=== PATIENT | male | born 1935 | race Caucasian/White ===

== ENCOUNTER → 2016-08-09 | Outpatient (CLI) | payer MEDICARE, OTHER | LOC: RAD 08:31 | PROVIDERS: ATTEND Student in an Organized Health Care Education/Training Program | DX: R13.10 Dysphagia, unspecified (principal) | CPT/HCPCS: 74210 ==

== ENCOUNTER → 2019-07-06 | Outpatient (CLI) | payer MEDICARE, OTHER ==
--- NOTE | 2019-07-06 16:08 | RADIOLOGY REPORT (SQ) ---
EXAM DESCRIPTION: BARIUM SWALLOW ESOPHAGUS COMPLETED DATE/TIME: 07/06/2019 9:21 am REASON FOR STUDY: R13.10 DYSPHAGIA, UNSPECIFIED R13.10 DYSPHAGIA, UNSPECIFIED COMPARISON: Barium swallow 08/09/2016 TECHNIQUE: Under fluoroscopic guidance, patient ingested effervescent granules followed by thick and thin barium. Fluoroscopic spot images and routine radiographic images acquired and stored on PACS. 12 MM BARIUM TABLET GIVEN: Barium tablet lodged in the distal esophagus just above a small hiatal her sherine for approximately 15 minutes before passing into the stomach. LIMITATIONS: None. FLUOROSCOPY TIME: FLUORO TIME: 2.39 minutes 11 images saved to PACS. FINDINGS: NEUROMUSCULAR COORDINATION OF SWALLOW: Normal. Laryngeal penetration without aspiration s een. ESOPHAGEAL MOTILITY: Normal peristalsis. No esophageal spasm. ESOPHAGEAL MUCOSA: Normal mucosa without masses or ulceration. GASTRO-ESOPHAGEAL JUNCTION: Narrowing of the GE junction which impeded the passage of the 12 mm table t for approximately 15 minutes. There is a small hiatal hernia present which is related to possible surgical changes consistent with Ramon fundoplication. Correlation with patient surgical history re commended. NON-GI TRACT STRUCTURES: No significant finding. OTHER: No other significant finding. IMPRESSION: NARROWING AT THE DISTAL ESOPHAGUS WHICH IMPEDES THE PASSAGE OF 12 MM BARIUM TABLET. SMA LL HIATAL HERNIA RELATED TO POSSIBLE SURGICAL CHANGES CONSISTENT WITH RAMON. CORRELATION WITH PATIE NT'S GI SURGICAL HISTORY IS RECOMMENDED. RECOMMENDATION: None COMMENT: None Quality ID [id number]: Final reports for procedures using fluoroscopy that document radiation exposure zak moe, or exposure time and number of fluorographic images (if radiation exposure indices are not avail able) TECHNICAL DOCUMENTATION: JOB ID: [id number] [employer]- All Rights Reserved Reading location - IP/workstation name: [email or web address] [id number]
== END ==
LOC: RAD 08:29
PROVIDERS: ATTEND Internal Medicine Gastroenterology
DX: R13.10 Dysphagia, unspecified (principal)
CPT/HCPCS: 74220

== ENCOUNTER 2019-11-13 09:46 | Inpatient (IN) | payer MEDICARE, OTHER ==
--- NOTE | 2019-11-13 09:57 | ER Document Report ---
ED Medical Screen (RME) - General Chief Complaint: Swelling Stated Complaint: BODY SWELLING/WEIGHT GAIN Time Seen by Provider: 11/13/19 09:50 Primary Care Provider: LAUREN FERRER MD [Primary Care Provider] - Follow up as needed Mode of Arrival: Wheelchair Information source: Patient Notes: Patient presents complaining of lower extremity swelling for the past week with occasional shortness of breath. Patient denies any chest pain. Patient does acknowledge a history of hypertension COPD and CHF. I have greeted and performed a rapid initial assessment of this patient. A comprehensive ED assessment and evaluation of the patient, analysis of test results and completion of the medical decision making process will be conducted by additional ED providers. TRAVEL OUTSIDE OF THE [place] IN LAST 30 DAYS: No - Related Data Allergies/Adverse Reactions: Sulfa (Sulfonamide Antibiotics) Allergy (Intermediate, Verified 11/24/11 08:41) Past Medical History - Past Medical History Cardiac Medical History: Reports: Hx Coronary Artery Disease, Hx Hypertension - high cholesterol Comment Only: Hx Heart Attack - unsure Pulmonary Medical History: Denies: Hx Asthma, Hx Bronchitis, Hx COPD, Hx Pneumonia Neurological Medical History: Denies: Hx Cerebrovascular Accident, Hx Seizures Musculoskeltal Medical History: Reports Hx Arthritis Past Surgical History: Denies: Hx Pacemaker - Immunizations Hx Diphtheria, Pertussis, Tetanus Vaccination: Yes Physical Exam - General General appearance: Alert Notes: Respirations unlabored, 2-3+ edema to bilateral lower extremities, heart rate irregularly irregular Doctor's Discharge - Discharge Referrals: LAUREN FERRER MD [Primary Care Provider] - Follow up as needed
[2019-11-13 10:21] LABS: ABSOLUTE EOSINOPHILS # (AUTO) 0.2 10^3/uL (0.0-0.6); ABSOLUTE LYMPHOCYTES (AUTO) 0.3 10^3/uL (0.5-4.7); ABSOLUTE MONOCYTES (AUTO) 0.5 10^3/uL (0.1-1.4); ABSOLUTE NEUT (AUTO) 3.7 10^3/uL (1.7-8.2); BASOPHILS % (AUTO) 0.6 % (0-2); EOSINOPHILS % (AUTO) 3.5 % (0-6); HEMATOCRIT 38.1 % (37.9-51.0); HEMOGLOBIN 12.7 g/dL (13.5-17.0); LYMPHOCYTES % (AUTO) 7.3 % (13-45); MEAN CORPUSCULAR HEMOGLOBIN 31.9 pg (27.0-33.4); MEAN CORPUSCULAR HGB CONC 33.4 g/dL (32.0-36.0); MEAN CORPUSCULAR VOLUME 96 fl (80-97); MONOCYTES % (AUTO) 10.5 % (3-13); PLATELET COUNT 116 10^3/uL (150-450); RED BLOOD COUNT 3.99 10^6/uL (4.35-5.55); RED CELL DISTRIBUTION WIDTH 15.6 % (11.5-14.0); SEGMENTED NEUTROPHILS % (AUTO) 78.1 % (42-78); TOTAL CELLS COUNTED % (AUTO) 100 %; WHITE BLOOD COUNT 4.7 10^3/uL (4.0-10.5)
[2019-11-13 10:46] LABS: ALBUMIN 3.7 g/dL (3.5-5.0); ALKALINE PHOSPHATASE 114 U/L (38-126); ANION GAP 11 (5-19); ASPARTATE AMINO TRANSFERASE 30 U/L (17-59); BILIRUBIN,DIRECT 0.4 mg/dL (0.0-0.4); BILIRUBIN,TOTAL 1.8 mg/dL (0.2-1.3); BLOOD UREA NITROGEN 21 mg/dL (7-20); CARBON DIOXIDE 26 mmol/L (22-30); CHLORIDE 102 mmol/L (98-107); GLUCOSE 176 mg/dL (75-110); POTASSIUM 3.3 mmol/L (3.6-5.0); TOTAL PROTEIN 6.8 g/dL (6.3-8.2)
--- NOTE | 2019-11-13 10:49 | RADIOLOGY REPORT (SQ) ---
EXAM DESCRIPTION: CHEST 2 VIEWS IMAGES COMPLETED DATE/TIME: 11/13/2019 10:38 am REASON FOR STUDY: sob, extremity swelling COMPARISON: None. EXAM PARAMETERS: NUMBER OF VIEWS: two views TECHNIQUE: Digital Frontal and Lateral radiographic views of the chest acquired. RADIATION DOSE: NA LIMITATIONS: none FINDINGS: LUNGS AND PLEURA: Bilateral interstitial airspace disease. Small effusions and or pleural thickening. Pleural thickening bilaterally left greater than right. MEDIASTINUM AND HILAR STRUCTURES: No masses or contour abnormalities. HEART AND VASCULAR STRUCTURES: Heart is enlarged. No overt failure. BONES: No acute findings. HARDWARE: Sternotomy wires are in place. OTHER: No other significant finding. IMPRESSION: Suspect chronic bilateral interstitial airspace disease. Blunting of both costophrenic angles consistent with small effusions and or pleural thickening. TECHNICAL DOCUMENTATION: JOB ID: [id number] [employer]- All Rights Reserved Reading location - IP/workstation name: [email or web address]
[2019-11-13 10:59] LABS: TROPONIN I 0.032 ng/mL
[2019-11-13 11:07] LABS: PROTHROMBIN TIME 18.3 SEC (11.4-15.4)
[2019-11-13 11:08] LABS: PARTIAL THROMBOPLASTIN TIME 38.1 SEC (23.5-35.8)
[2019-11-13] MEDS ORDERED: FUROSEMIDE INJ/PF 40 MG/4 ML SDV IV ONE (11:46)
[2019-11-13] MEDS ORDERED: NITROGLYCERIN 2% OINTMENT 1 GM PACKET TP ONE (11:47)
[2019-11-13] MEDS ORDERED: POTASSI CL 20 MEQ/50 ML RIDER 20 MEQ/50 ML RTUPB IV ONE (11:48)
[2019-11-13] MEDS ORDERED: POTASSIUM CHLORIDE 10 MEQ TABLET.ER PO ONE (11:49)
--- NOTE | 2019-11-13 12:48 | ER Document Report ---
Entered by ARNALDO ZAIDI SCRIBE 11/13/19 1022 Acting as scribe for:RAYNA COLLADO MD ED General - General Chief Complaint: Leg Swelling Stated Complaint: BODY SWELLING/WEIGHT GAIN Time Seen by Provider: 11/13/19 09:50 Primary Care Provider: LAUREN FERRER MD [Primary Care Provider] - Follow up as needed Mode of Arrival: Wheelchair Information source: Patient Notes: This 84-year-old male presents to the emergency department complaining of bilateral leg swelling that began a week ago. Patient explains that he noticed being increasing short of breath throughout the week. Patient reported that he did not sleep well last night and "lost 2-3 pounds last night". Patient reports that his last bowel movement was this morning and it was loose. Patient states that he is not on oxygen at home and saw his deputy chief sheriff yesterday. Patient denies chills, nausea, vomiting, fever, chest pain and cough. later was called by request of patient. states that patient has been in bed for the past two days. said that patient is unable to stand to urinate on his own and has a rash on his testicles. said she tried to spray something on to help the rash but patient complained it burned. PMH: Stage 4 kidney failure, history of quadruple coronary artery bypass surgery, several coronary stents (last being 2 years ago in [place]), COPD, CHF (last CHF episode 4-5 years ago). TRAVEL OUTSIDE OF THE [place] IN LAST 30 DAYS: No - Related Data Allergies/Adverse Reactions: Sulfa (Sulfonamide Antibiotics) Allergy (Intermediate, Verified 11/13/19 09:59) Home Medications: advair, proair, combivent, spiriva, timolol, keflex, delzicol, vit c, aspirin, finasteride, metoprolol, atorvastatin, furosemide, latanoprost Past Medical History - General Information source: Patient - Social History Smoking Status: Former Smoker Cigarette use (# per day): No Chew tobacco use (# tins/day): No Frequency of alcohol use: None Drug Abuse: None Lives with: Spouse/Significant other Family History: Reviewed & Not Pertinent Patient has homicidal ideation: No - Past Medical History Cardiac Medical History: Reports: Hx Coronary Artery Disease, Hx Hypertension - high cholesterol Musculoskeletal Medical History: Reports Hx Arthritis Surgical Hx: Negative - Immunizations Hx Diphtheria, Pertussis, Tetanus Vaccination: Yes Review of Systems - Review of Systems Constitutional: See HPI, Weight loss. denies: Chills, Fever EENT: No symptoms reported Cardiovascular: See HPI. denies: Chest pain Respiratory: See HPI, Short of breath Gastrointestinal: See HPI, Last bowel movement. denies: Nausea, Vomiting Genitourinary: No symptoms reported Male Genitourinary: No symptoms reported Musculoskeletal: See HPI, Leg swelling - bilateral Skin: No symptoms reported Hematologic/Lymphatic: No symptoms reported Neurological/Psychological: No symptoms reported -: Yes All other systems reviewed and negative Physical Exam - Vital signs Vitals: Temp Pulse Resp BP Pulse Ox 97.6 F 64 22 H 136/64 H 100 11/13/19 09:55 11/13/19 09:55 11/13/19 09:55 11/13/19 09:55 11/13/19 09:55 - Notes Notes: Physical Exam: General: Alert. HEENT: Normocephalic. Atraumatic. PERRL. Extraocular movements intact. Oropharynx clear. Neck: Supple. Non-tender. Respiratory: Moderate respiratory distress. Diminished breath in the bases bilaterally. Cardiovascular: Irregularly irregular. Abdominal: Obese. Non-tender. No distension. Normal Bowel Sounds. Rectal: Stool brown color and guaiac negative. Back: No gross abnormalities. Extremities: Moves all four extremities. Upper extremities: Normal inspection. Normal ROM. Lower extremities: 2+ edema. Normal ROM. Neurological: Normal cognition. AAOx4. Normal speech. Psychological: Normal affect. Normal Mood. Skin: Warm. Dry. Normal color. Course - Re-evaluation Re-evalutation: 11/13/19 12:38 Patient remains shortness of breath with minimal exertion. If patient stands up to get out of the bed he desats down to 89%. Once at rest his sats return to up to 98%. Denies any chest pain. 11/13/19 12:[address] Ortiz, deputy chief sheriff who will do a bedside consult with patient. 11/13/19 12:[address] Moct[place], hospitalist who will admit patient to hospital. - Vital Signs Vital signs: Temp Pulse Resp BP Pulse Ox 97.6 F 64 14 132/71 H 97 11/13/19 09:55 11/13/19 09:55 11/13/19 10:12 11/13/19 10:12 11/13/19 10:12 11/13/19 12:39 Vital signs stable. - Laboratory Result Diagrams: 11/13/19 10:11 11/13/19 10:11 Laboratory results interpreted by me: 11/13/19 11/13/19 11/13/19 10:11 10:11 10:11 RBC 3.99 L Hgb 12.7 L RDW 15.6 H Plt Count 116 L Lymph % (Auto) 7.3 L Absolute Lymphs (auto) 0.3 L Seg Neutrophils % 78.1 H PT APTT Potassium 3.3 L BUN 21 H Creatinine 1.70 H Est GFR ( Amer) 47 L Est GFR (MDRD) Non-Af 39 L Glucose 176 H Total Bilirubin 1.8 H NT-Pro-B Natriuret Pep 8320 H 11/13/19 10:11 RBC Hgb RDW Plt Count Lymph % (Auto) Absolute Lymphs (auto) Seg Neutrophils % PT 18.3 H APTT 38.1 H Potassium BUN Creatinine Est GFR ( Amer) Est GFR (MDRD) Non-Af Glucose Total Bilirubin NT-Pro-B Natriuret Pep Laboratories show chronic renal failure, CHF, and elevated troponin. Patient has COPD chronic A. fib with CHF chronic renal failure. Patient also has hypokalemia at this time. 11/13/19 12:39 - Diagnostic Test Radiology reviewed: Image reviewed, Reports reviewed Radiology results interpreted by me: 11/13/19 12:40 Chest x-ray shows cardiomegaly and opacification and noted in both lung bases consistent with either fluid chronic scarring or pneumonitis. - EKG Interpretation by Me Additional EKG results interpreted by me: 11/13/19 12:41 Twelve-lead EKG shows atrial fibrillation with a rate of 60 ventricular TRigeminy, and a right bundle branch block. Critical Care Note - Critical Care Note Total time excluding time spent on procedures (mins): 40 - MONITORING a FIB, CHF, HYPOXIA, AND ELEVATED TROPONIN. TRETMENT OF PRESENT PROBLEMS STATED. CONSULT S WITH CARDIOILOGIST, AND IFNFORMATION GATHERING FROM FAMILY. Discharge - Discharge Clinical Impression: Congestive heart failure, Chronic kidney disease (CKD), stage IV (severe), Elevated troponin, Hypokalemia Condition: Fair Disposition: ADMITTED INPATIENT Admitting Provider: Padma (Hospitalist) Unit Admitted: IMCU Referrals: LAUREN FERRER MD [Primary Care Provider] - Follow up as needed I personally performed the services described in the documentation, reviewed and edited the documentation which was dictated to the scribe in my presence, and it accurately records my words and actions.
[2019-11-13] MEDS ORDERED: ASPIRIN 81 MG TABLET, CHEWABLE PO ONE (13:20)
--- NOTE | 2019-11-13 13:41 | PDOC CONSULTATION ---
Consultation Consult Date: 11/13/19 Attending physician:: GRISELDA MAS Provider Consulted: DOMINGO YOUNG Consult reason:: CHF History of Present Illness Admission Date/PCP: 11/13/19 12:52 LAUREN FERRER MD History of Present Illness: SANDEE FERNANDES is a 84 year old male, retired [employer] with history of coronary artery disease status post 4 vessel CABG in 2001 and stent in 2012 and left main stenting in December 2016 with a 3.5 mm x 12 mm Xience VIC as well as stenting of the left circumflex with a 3.5 mm x 23 mm Xience VIC, hypertension, heart failure, pulmonary hypertension, hyperlipidemia who is consulted to our service for evaluation and further treatment of heart failure. His echocardiogram in July 2018 was most remarkable for severe pulmonary hypertension, preserved ejection fraction and stable aortic root aneurysm at 3.9 cm. I last evaluated him in my office on 09/20/2019 at which time he was found to be mildly fluid overloaded therefore his Lasix was increased but unfortunately he was not able to follow-up as scheduled 2 weeks later. His states that he had been doing well until approximately 1 to 2 weeks ago when he began to notice lower extremity edema associated with shortness of breath which progressed to the point he just spent the last 2 or 3 days in bed and unable to walk without assistance. He is evaluated in the emergency room where he is in no acute distress in his bed. He specifically denies chest pain, palpitations, syncope, presyncope as well as shortness of breath. Physical exam on 11/13/2019: GENERAL: Oriented x3 with normal mood. Not in acute distress. Well groomed and well developed. HEENT: Normocephalic, atraumatic. Pupils equal. Sclerae anicteric. Oropharynx moist. NECK: No JVD. No carotid bruits. LUNGS: Decreased breath sounds bilaterally. Normal respiratory effort without the use of accessory muscles or intercostal retractions. CARDIOVASCULAR: Irregularly irregular rate and rhythm, normal S1 and S2 without rubs, or gallops. 2/6 crescendo decrescendo murmur at the right upper sternal border. PMI not displaced. EXTREMITIES: 2-3 + pitting edema bilaterally, no cyanosis up to the thighs, no clubbing. +2 pulses femoral and pedal pulses bilaterally. SKIN: No lesions or rashes. MUSCULOSKELETAL: No chest tenderness to palpation. NEUROLOGIC: Nonfocal. No gross sensory or motor deficits bilateral upper or lower extremities. [id number] Cardiac studies: Echocardiogram on 09/25/2019: -LV is normal in size. -Mild concentric LVH. -Normal ejection fraction. -Diastolic dysfunction is indeterminate in the presence of atrial fibrillation. -Flattened septum consistent with RV pressure/volume overload. -Moderate RVE with mildly reduced systolic function. -Moderate biatrial enlargement. -Mild MAC without stenosis. -Mild to moderate MR, severe TR, mild AI, mild to moderate PI. -Severely elevated pulmonary pressures and estimated between 75 and 80 mmHg. -Borderline dilated aortic root at 3.7 cm. Echocardiogram on 08/02/18: -LV is normal in size. -Mild concentric LVH. -Ejection fraction is normal. -RV pressure/volume overload is present. -Mild to moderate RVE with moderately decreased systolic function. -Severe biatrial enlargement. -Mild MAC without stenosis -Mild to moderate MR, moderate to severe TR, mild AI, mild PI. -Severe pulmonary hypertension. -Mildly dilated aortic root at 3.9 cm. Echocardiogram on 07/29/17: -The patient was in slow atrial fibrillation. -The left ventricle is normal in size. -Mild LVH. -Grossly normal EF. -Flattened septum consistent with RV pressure overload. -Moderate to severe RVE with borderline reduced systolic function. -Severe LAE, moderate JEAN. -Mild MAC without stenosis. -Moderate MR, severe TR, mild to moderate AI, mild PI. -Mildly sclerotic aortic valve without stenosis. -Severe pulmonary hypertension with pressures estimated at 82 mmHg. -Mild aortic root dilatation at 4.1 cm. -Mildly dilated proximal ascending aorta at 2.8 cm. [facility] on 12/14 17: -Left main: No disease. -LAD: Heavily calcified. Proximally occluded, fills distally via SVG. -Diagonal: fills distally via OGDEN graft. -Left circumflex: Dominant vessel. 70% proximal stenosis. Totally occluded distally. -OM1: Proximally occluded. fills via SVG. -PDA: fills via SVG. -SVG to the PDA: Patent. -SVG to 2 diagonals: Patent. -SVG to OM1: Patent. -OGDEN: Patent. Past Medical History Cardiac Medical History: Reports: Coronary Artery Disease, Hypertension - high cholesterol Comment Only: Myocardial Infarction - unsure Pulmonary Medical History: Denies: Asthma, Bronchitis, Chronic Obstructive Pulmonary Disease (COPD), Pneumonia Neurological Medical History: Denies: Seizures Musculoskeltal Medical History: Reports: Arthritis Hematology: Denies: Anemia Past Surgical History Past Surgical History: Denies: Pacemaker Social History Lives with: Spouse/Significant other Smoking Status: Former Smoker Electronic Cigarette use?: No Family History Family History: Reviewed & Not Pertinent Parental Family History Reviewed: Yes Children Family History Reviewed: Yes Sibling(s) Family History Reviewed.: Yes Medication/Allergy Home Medications: Acetaminophen [Acetaminophen Extra Strength] 1,000 mg PO QAMP PRN 11/13/19 Albuterol Sulfate [Proair HFA Inhalation Aerosol 8.5 gm MDI] 2 puff IH Q6 11/13/19 Ascorbic Acid [Vitamin C 500 mg Tablet] 500 mg PO QAM 11/13/19 Aspirin [Adult Low Dose Aspirin EC] 81 mg PO NOON 11/13/19 Atorvastatin Calcium [Lipitor 40 mg Tablet] 40 mg PO QHS 11/13/19 Carboxymethylcellulose Sodium [Refresh Tears] 1 drop OU ASDIR PRN 11/13/19 Cephalexin [Cephalexin 500 MG Tablet] 500 mg PO Q8 11/13/19 Finasteride [Proscar 5 mg Tablet] 5 mg PO NOON 11/13/19 Fluticasone Propion/Salmeterol [Advair HFA 115-21 mcg Inhaler] 2 puff IH BID 11/13/19 Furosemide [Lasix 40 mg Tablet] 40 mg PO BID 11/13/19 Ipratropium/Albuterol Sulfate [Combivent Respimat 4 gm Mdi] 1 puff IH QID 11/13/19 Latanoprost/Pf [Latanoprost 0.005% Eye Drop] 1 drop OU QHS 11/13/19 Mesalamine [Mesalamine Dr] 800 mg PO Q8 11/13/19 Metoprolol Succinate [Toprol Xl 25 mg Tab.sr] 25 mg PO NOON 11/13/19 Timolol Maleate [Timoptic 0.5% Oph Soln 5 ml] 1 drop OU DAILY 11/13/19 Tiotropium [place] [Spiriva Respimat] 1 puff IH ASDIR PRN 11/13/19 Allergies/Adverse Reactions: Sulfa (Sulfonamide Antibiotics) Allergy (Intermediate, Verified 11/13/19 09:59) Physical Exam Vital Signs: Temp Pulse Resp BP Pulse Ox 97.6 F 64 14 132/71 H 97 11/13/19 09:55 11/13/19 09:55 11/13/19 10:12 11/13/19 10:12 11/13/19 10:12 Intake & Output 11/12/19 11/13/19 11/14/19 06:59 06:59 06:59 Weight 101.7 kg Results Laboratory Results: 11/13/19 10:11 11/13/19 10:11 11/13/19 11/13/19 10:11 10:11 WBC 4.7 RBC 3.99 L Hgb 12.7 L Hct 38.1 MCV 96 MCH 31.9 MCHC 33.4 RDW 15.6 H Plt Count 116 L Seg Neutrophils % 78.1 H Sodium 138.7 Potassium 3.3 L Chloride 102 Carbon Dioxide 26 Anion Gap 11 BUN 21 H Creatinine 1.70 H Est GFR ( Amer) 47 L Glucose 176 H Calcium 9.0 Total Bilirubin 1.8 H AST 30 Alkaline Phosphatase 114 Total Protein 6.8 Albumin 3.7 11/13/19 10:11 Troponin I 0.032 NT-Pro-B Natriuret Pep 8320 H Impressions: Chest X-Ray 11/13/19 09:55 IMPRESSION: Suspect chronic bilateral interstitial airspace disease. Blunting of both costophrenic angles consistent with small effusions and or pleural thickening. 11/13/19 10:11 11/13/19 10:11 MCV 96 fl (80-97) 11/13/19 10:11 MCH 31.9 pg (27.0-33.4) 11/13/19 10:11 MCHC 33.4 g/dL (32.0-36.0) 11/13/19 10:11 RDW 15.6 % (11.5-14.0) H 11/13/19 10:11 Seg Neutrophils % 78.1 % (42-78) H 11/13/19 10:11 Chloride 102 mmol/L (98-107) 11/13/19 10:11 Carbon Dioxide 26 mmol/L (22-30) 11/13/19 10:11 Anion Gap 11 (5-19) 11/13/19 10:11 Est GFR ( Amer) 47 (>60) L 11/13/19 10:11 Glucose 176 mg/dL (75-110) H 11/13/19 10:11 Calcium 9.0 mg/dL (8.4-10.2) 11/13/19 10:11 Total Bilirubin 1.8 mg/dL (0.2-1.3) H 11/13/19 10:11 AST 30 U/L (17-59) 11/13/19 10:11 Alkaline Phosphatase 114 U/L (38-126) 11/13/19 10:11 Total Protein 6.8 g/dL (6.3-8.2) 11/13/19 10:11 Albumin 3.7 g/dL (3.5-5.0) 11/13/19 10:11 11/13/19 10:11 Troponin I 0.032 NT-Pro-B Natriuret Pep 8320 H Assessment & Plan - Diagnosis (1) Heart failure with preserved ejection fraction, borderline, class III Plan: The patient is currently fluid overloaded with symptoms suggestive of heart failure as well as lower extremity edema, elevated proBNP and small pleural effusions. His most recent echocardiogram in the outpatient setting in September 2019 demonstrated preserved ejection fraction with mild RV systolic dysfunction and severe pulmonary hypertension which has remained stable from a prior echocardiogram in July 2018. Recommendations: -Diuresis with Lasix 40 mg IV twice daily. -Replace electrolytes. -Restrict fluid intake to 1500 cc daily. -Low sodium diet, less than 1500 mg daily. -Strict intake and output. -Daily weights. -Cardiac telemetry. (2) Chronic kidney disease (CKD), stage IV (severe) Plan: Today's creatinine is unchanged from a prior one done in my office in September 2019. Recommendations: -Diuresis as above with close attention to creatinine. -Replace electrolytes. (3) Elevated troponin Plan: His troponin is detectable however still below the cutoff for acute injury. This is likely secondary to his heart failure exacerbation and not from an ACS. Recommendations: -Continue with clinical follow-up. -Continue with outpatient medications except Lasix. (4) Permanent atrial fibrillation Plan: His heart rate is well controlled and he is anticoagulated with low-dose Eliquis. Recommendations: -Continue with current medical management.
[2019-11-13] MEDS ORDERED: (PENDING PHARMACY ID) (Tiotropium Bromide [Spiriva Respimat] 1 PUFF) IH PRN (16:43)
[2019-11-13] MEDS ORDERED: (PENDING PHARMACY ID) (Carboxymethylcellulose Sodium [Refresh Tears] 1 DROP) OU PRN (16:43)
[2019-11-13] MEDS ORDERED: (PENDING PHARMACY ID) (Acetaminophen [Acetaminophen Extra Strength] 1,000 MG) PO PRN (16:43)
[2019-11-13] MEDS ORDERED: ACETAMINOPHEN 325 MG TABLET PO PRN (16:48)
--- NOTE | 2019-11-13 17:32 | PDOC H&P ---
History of Present Illness Admission Date/PCP: 11/13/19 12:52 LAUREN FERRER MD Patient complains of: Shortness of breath History of Present Illness: SANDEE FERNANDES is a 84 year old male who has history of coronary artery disease status post CABG and stents. He also has hypertension, congestive heart failure, pulmonary hypertension, dyslipidemia. Patient has preserved ejection fraction. He had an echocardiogram September 2019. Patient presents with dyspnea on exertion and he was hypoxic on exertion in the emergency room. His troponin level slightly elevated at 0.032 but decreased after that. He has lower extremity edema. Past Medical History Cardiac Medical History: Reports: Coronary Artery Disease, Hypertension - high cholesterol Comment Only: Myocardial Infarction - unsure Pulmonary Medical History: Denies: Asthma, Bronchitis, Chronic Obstructive Pulmonary Disease (COPD), Pneumonia Neurological Medical History: Denies: Seizures Musculoskeltal Medical History: Reports: Arthritis Psychiatric Medical History: Denies: Depression Hematology: Denies: Anemia Past Surgical History Past Surgical History: Denies: Pacemaker Social History Lives with: Spouse/Significant other Smoking Status: Former Smoker Electronic Cigarette use?: No Frequency of Alcohol Use: None Hx Recreational Drug Use: No Hx Prescription Drug Abuse: No Family History Family History: Reviewed & Not Pertinent Parental Family History Reviewed: Yes Children Family History Reviewed: Yes Sibling(s) Family History Reviewed.: Yes Medication/Allergy Home Medications: Acetaminophen [Acetaminophen Extra Strength] 1,000 mg PO QAMP PRN 11/13/19 Albuterol Sulfate [Proair HFA Inhalation Aerosol 8.5 gm MDI] 2 puff IH Q6 11/13/19 Ascorbic Acid [Vitamin C 500 mg Tablet] 500 mg PO QAM 11/13/19 Aspirin [Adult Low Dose Aspirin EC] 81 mg PO NOON 11/13/19 Atorvastatin Calcium [Lipitor 40 mg Tablet] 40 mg PO QHS 11/13/19 Carboxymethylcellulose Sodium [Refresh Tears] 1 drop OU ASDIR PRN 11/13/19 Cephalexin [Cephalexin 500 MG Tablet] 500 mg PO Q8 11/13/19 Finasteride [Proscar 5 mg Tablet] 5 mg PO NOON 11/13/19 Fluticasone Propion/Salmeterol [Advair HFA 115-21 mcg Inhaler] 2 puff IH BID 11/13/19 Furosemide [Lasix 40 mg Tablet] 40 mg PO BID 11/13/19 Ipratropium/Albuterol Sulfate [Combivent Respimat 4 gm Mdi] 1 puff IH QID 11/13/19 Latanoprost/Pf [Latanoprost 0.005% Eye Drop] 1 drop OU QHS 11/13/19 Mesalamine [Mesalamine Dr] 800 mg PO Q8 11/13/19 Metoprolol Succinate [Toprol Xl 25 mg Tab.sr] 25 mg PO NOON 11/13/19 Timolol Maleate [Timoptic 0.5% Oph Soln 5 ml] 1 drop OU DAILY 11/13/19 Tiotropium [place] [Spiriva Respimat] 1 puff IH ASDIR PRN 11/13/19 Allergies/Adverse Reactions: Sulfa (Sulfonamide Antibiotics) Allergy (Intermediate, Verified 11/13/19 09:59) Review of Systems All systems: reviewed and no additional remarkable complaints except as stated Physical Exam Vital Signs: Temp Pulse Resp BP Pulse Ox 98.0 F 80 20 107/66 93 11/13/19 13:01 11/13/19 15:25 11/13/19 15:25 11/13/19 15:25 11/13/19 14:11 Intake & Output 11/12/19 11/13/19 11/14/19 06:59 06:59 06:59 Weight 222 lb 0.088 oz General appearance: PRESENT: no acute distress, cooperative Head exam: PRESENT: atraumatic, normocephalic Eye exam: PRESENT: EOMI, PERRLA Ear exam: ABSENT: bleeding, drainage Mouth exam: PRESENT: neck supple, tongue midline Neck exam: ABSENT: meningismus, tenderness, tracheostomy Respiratory exam: PRESENT: rales. ABSENT: accessory muscle use Cardiovascular exam: PRESENT: irregular rhythm, +S1, +S2. ABSENT: RRR GI/Abdominal exam: PRESENT: normal bowel sounds, soft. ABSENT: tenderness Rectal exam: PRESENT: deferred Neurological exam: PRESENT: alert, awake, oriented to time, oriented to situation. ABSENT: oriented to place Psychiatric exam: PRESENT: anxious Results Laboratory Results: 11/13/19 10:11 11/13/19 10:11 11/13/19 11/13/19 11/13/19 10:11 10:11 10:11 WBC 4.7 RBC 3.99 L Hgb 12.7 L Hct 38.1 MCV 96 MCH 31.9 MCHC 33.4 RDW 15.6 H Plt Count 116 L Seg Neutrophils % 78.1 H Sodium 138.7 Potassium 3.3 L Chloride 102 Carbon Dioxide 26 Anion Gap 11 BUN 21 H Creatinine 1.70 H Est GFR ( Amer) 47 L Glucose 176 H Calcium 9.0 Total Bilirubin 1.8 H AST 30 Alkaline Phosphatase 114 Total Protein 6.8 Albumin 3.7 TSH 1.66 11/13/19 11/13/19 10:11 13:21 Troponin I 0.032 0.027 NT-Pro-B Natriuret Pep 8320 H Impressions: Chest X-Ray 11/13/19 09:55 IMPRESSION: Suspect chronic bilateral interstitial airspace disease. Blunting of both costophrenic angles consistent with small effusions and or pleural thickening. Assessment and Plan - Diagnosis (1) Heart failure with preserved ejection fraction, borderline, class III Is this a current diagnosis for this admission?: Yes Plan: Acute on chronic diastolic CHF Normal EF on echocardiogram September 2019 Admit this patient to telemetry. Start IV Lasix Daily weight Strict I&O (2) Chronic kidney disease (CKD), stage IV (severe) Is this a current diagnosis for this admission?: Yes Plan: Continue to monitor renal function (3) Elevated troponin Is this a current diagnosis for this admission?: Yes Plan: Flat. No chest pain. Cardiology involved. (4) Permanent atrial fibrillation Is this a current diagnosis for this admission?: Yes Plan: Rate controlled. (5) CAD (coronary artery disease) Is this a current diagnosis for this admission?: Yes Plan: Continue current cardiac medications (6) Dyslipidemia Is this a current diagnosis for this admission?: Yes Plan: Continue statin treatment
[2019-11-13] MEDS ORDERED: SALMETEROL IH SCH (18:00)
[2019-11-13] MEDS ORDERED: [UNRECOGNIZED DRUG - OTHER] IH SCH (18:00)
[2019-11-13] MEDS ORDERED: (PENDING PHARMACY ID) (Ipratropium/Albuterol Sulfate [Combivent Respimat 4 Gm Mdi] 1 PUFF) IH SCH (18:00)
[2019-11-13] MEDS ORDERED: FLUTICASONE PROPIONATE IH SCH (18:00)
[2019-11-13] MEDS ORDERED: (PENDING PHARMACY ID) (Albuterol Sulfate 2 PUFF) IH SCH (18:00)
[2019-11-13] MEDS: ALBUTEROL SULFATE HFA (90 MCG/PUFF) 200 PUFF/8.5 GM MDI IH SCH (18:29)
[2019-11-13] MEDS: FUROSEMIDE INJ/PF 40 MG/4 ML SDV IV SCH (18:29)
[2019-11-13] MEDS ORDERED: HALOPERIDOL LACTATE INJ 5 MG/1 ML VIAL ONE (18:57)
[2019-11-13 19:35] LABS: ANION GAP 13 (5-19); BLOOD UREA NITROGEN 21 mg/dL (7-20); CALCIUM 9.4 mg/dL (8.4-10.2); CARBON DIOXIDE 23 mmol/L (22-30); CHLORIDE 104 mmol/L (98-107); GLUCOSE 153 mg/dL (75-110)
[2019-11-13] MEDS ORDERED: HALOPERIDOL LACTATE INJ 5 MG/1 ML VIAL IV ONE (19:45)
[2019-11-13] MEDS: MESALAMINE 400 MG CAPSULE.DR PO SCH (21:02)
[2019-11-13] MEDS: ATORVASTATIN CALCIUM 40 MG TABLET PO SCH (21:02)
[2019-11-13] MEDS: LATANOPROST 0.005% OPH SOLN 2.5 ML OU SCH (21:02)
[2019-11-13] MEDS ORDERED: (PENDING PHARMACY ID) (Latanoprost/Pf [Latanoprost 0.005% Eye Drop] 1 DROP) OU SCH (22:00)
[2019-11-13] MEDS ORDERED: LORAZEPAM INJ 2 MG/1 ML VIAL ONE (22:17)
[2019-11-13] MEDS: LORAZEPAM INJ 2 MG/1 ML VIAL IV PRN (22:20)
[2019-11-14] MEDS: IPRATROPIUM/ALBUTEROL 0.5-2.5 MG/3 ML AMPUL NEB SCH ×4 (05:06→13:44)
[2019-11-14] MEDS: ALBUTEROL SULFATE HFA (90 MCG/PUFF) 200 PUFF/8.5 GM MDI IH SCH ×3 (05:07→17:08)
[2019-11-14] MEDS: MESALAMINE 400 MG CAPSULE.DR PO SCH ×3 (05:24→21:39)
[2019-11-14] MEDS: FUROSEMIDE INJ/PF 40 MG/4 ML SDV IV SCH ×2 (05:24→17:08)
[2019-11-14] MEDS: LORAZEPAM INJ 2 MG/1 ML VIAL IV PRN (05:27)
[2019-11-14 07:58] LABS: ABSOLUTE EOSINOPHILS # (AUTO) 0.1 10^3/uL (0.0-0.6); ABSOLUTE LYMPHOCYTES (AUTO) 0.4 10^3/uL (0.5-4.7); ABSOLUTE MONOCYTES (AUTO) 0.6 10^3/uL (0.1-1.4); BASOPHILS % (AUTO) 0.7 % (0-2); EOSINOPHILS % (AUTO) 2.7 % (0-6); HEMATOCRIT 38.9 % (37.9-51.0); LYMPHOCYTES % (AUTO) 7.5 % (13-45); MEAN CORPUSCULAR HEMOGLOBIN 31.9 pg (27.0-33.4); MEAN CORPUSCULAR HGB CONC 33.4 g/dL (32.0-36.0); MEAN CORPUSCULAR VOLUME 95 fl (80-97); MONOCYTES % (AUTO) 11.8 % (3-13); PLATELET COUNT 108 10^3/uL (150-450); RED BLOOD COUNT 4.08 10^6/uL (4.35-5.55); RED CELL DISTRIBUTION WIDTH 15.6 % (11.5-14.0); SEGMENTED NEUTROPHILS % (AUTO) 77.3 % (42-78); TOTAL CELLS COUNTED % (AUTO) 100 %; WHITE BLOOD COUNT 5.1 10^3/uL (4.0-10.5)
[2019-11-14 08:25] LABS: ALBUMIN 3.6 g/dL (3.5-5.0); ALKALINE PHOSPHATASE 129 U/L (38-126); ANION GAP 10 (5-19); ASPARTATE AMINO TRANSFERASE 33 U/L (17-59); BILIRUBIN,DIRECT 0.3 mg/dL (0.0-0.4); BILIRUBIN,TOTAL 2.2 mg/dL (0.2-1.3); BLOOD UREA NITROGEN 22 mg/dL (7-20); CALCIUM 9.5 mg/dL (8.4-10.2); CARBON DIOXIDE 28 mmol/L (22-30); CHLORIDE 103 mmol/L (98-107); CHOLESTEROL 82.02 mg/dL (0-200); GLUCOSE 111 mg/dL (75-110); POTASSIUM 3.9 mmol/L (3.6-5.0); TOTAL PROTEIN 6.7 g/dL (6.3-8.2); TRIGLYCERIDES 104 mg/dL (<150)
--- NOTE | 2019-11-14 08:33 | RADIOLOGY REPORT (SQ) ---
EXAM DESCRIPTION: CHEST SINGLE VIEW IMAGES COMPLETED DATE/TIME: 11/14/2019 8:21 am REASON FOR STUDY: chf COMPARISON: PA and lateral views of the chest from 11/13/2019. EXAM PARAMETERS: NUMBER OF VIEWS: One view. TECHNIQUE: An AP view of the chest was obtained. RADIATION DOSE: NA LIMITATIONS: None. FINDINGS: LUNGS AND PLEURA: Unchanged prominence of the interstitium. The costophrenic sulci are bl unted. The patchy opacities in the inferior aspect of the left hemithorax are also unchanged. There is no pneumothorax. MEDIASTINUM AND HILAR STRUCTURES: Stable mediastinal and hilar contours. HEART AND VASCULAR STRUCTURES: Stable cardiac silhouette. BONES: No acute findings. HARDWARE: Status post median sternotomy. OTHER: No other finding. IMPRESSION: Unchanged radiographic appearance of the chest. TECHNICAL DOCUMENTATION: JOB ID: [id number] 2010 [employer]- All Rights Reserved Reading location - IP/workstation name: [email or web address]
[2019-11-14 08:36] LABS: DIRECT LDL 41 mg/dL (<100)
--- NOTE | 2019-11-14 08:43 | EKG REPORT ---
SEVERITY:- ABNORMAL ECG - ATRIAL FIBRILLATION VENTRICULAR TRIGEMINY RIGHT BUNDLE BRANCH BLOCK : Confirmed by: Mishel Fonseca 14-Nov-2019 08:42:42
[2019-11-14] MEDS: FLUTICASONE/VILANTEROL 200-25 MCG/DOSE IH SCH (09:10)
[2019-11-14] MEDS: ASCORBIC ACID 500 MG TABLET PO SCH (09:10)
--- NOTE | 2019-11-14 09:12 | PDOC PROGRESS REPORT ---
Subjective Progress Note for:: 11/14/19 Subjective:: SANDEE FERNANDES is a 84 year old male, retired [employer] with history of coronary artery disease status post 4 vessel CABG in 2001 and stent in 2012 and left main stenting in December 2016 with a 3.5 mm x 12 mm Xience VIC as well as stenting of the left circumflex with a 3.5 mm x 23 mm Xience VIC, hypertension, heart failure, pulmonary hypertension, hyperlipidemia who is consulted to our service for evaluation and further treatment of heart failure. His echocardiogram in July 2018 was most remarkable for severe pulmonary hypertension, preserved ejection fraction and stable aortic root aneurysm at 3.9 cm. I last evaluated him in my office on 09/20/2019 at which time he was found to be mildly fluid overloaded therefore his Lasix was increased but unfortunately he was not able to follow-up as scheduled 2 weeks later. His states that he had been doing well until approximately 1 to 2 weeks ago when he began to notice lower extremity edema associated with shortness of breath which progressed to the point he just spent the last 2 or 3 days in bed and unable to walk without assistance. He is evaluated in the em ergency room where he is in no acute distress in his bed. He specifically denies chest pain, palpitations, syncope, presyncope as well as shortness of breath. 11/14/2019: The patient had episodes of agitation yesterday evening and early this morning that required administration of Ativan and use of soft restraints. This morning he is sleeping after receiving a dose 2 mg of Ativan at 0527. He is resting comfortably and responds to loud commands but is unable to answer any questions. His fluid balance is -850 cc. Physical exam on 11/13/2019: GENERAL: Sleeping, responsive to loud commands but cannot engage in a conversation. Not in acute distress. Disheveled. HEENT: Normocephalic, atraumatic. Pupils equal. Sclerae anicteric. Oropharynx moist. NECK: No JVD. No carotid bruits. LUNGS: Decreased breath sounds bilaterally. Normal respiratory effort without the use of accessory muscles or intercostal retractions. CARDIOVASCULAR: Irregularly irregular rate and rhythm, normal S1 and S2 without rubs, or gallops. 2/6 crescendo decrescendo murmur at the right upper sternal border. PMI not displaced. EXTREMITIES: 2-3 + pitting edema bilaterally, no cyanosis up to the thighs, no clubbing. +2 pulses femoral and pedal pulses bilaterally. SKIN: No lesions or rashes. MUSCULOSKELETAL: No chest tenderness to palpation. NEUROLOGIC: Nonfocal. No gross sensory or motor deficits bilateral upper or lower extremities. Cardiac studies: Echocardiogram on 09/25/2019: -LV is normal in size. -Mild concentric LVH. -Normal ejection fraction. -Diastolic dysfunction is indeterminate in the presence of atrial fibrillation. -Flattened septum consistent with RV pressure/volume overload. -Moderate RVE with mildly reduced systolic function. -Moderate biatrial enlargement. -Mild MAC without stenosis. -Mild to moderate MR, severe TR, mild AI, mild to moderate PI. -Severely elevated pulmonary pressures and estimated between 75 and 80 mmHg. -Borderline dilated aortic root at 3.7 cm. Echocardiogram on 08/02/18: -LV is normal in size. -Mild concentric LVH. -Ejection fraction is normal. -RV pressure/volume overload is present. -Mild to moderate RVE with moderately decreased systolic function. -Severe biatrial enlargement. -Mild MAC without stenosis -Mild to moderate MR, moderate to severe TR, mild AI, mild PI. -Severe pulmonary hypertension. -Mildly dilated aortic root at 3.9 cm. Echocardiogram on 07/29/17: -The patient was in slow atrial fibrillation. -The left ventricle is normal in size. -Mild LVH. -Grossly normal EF. -Flattened septum consistent with RV pressure overload. -Moderate to severe RVE with borderline reduced systolic function. -Severe LAE, moderate JEAN. -Mild MAC without stenosis. -Moderate MR, severe TR, mild to moderate AI, mild PI. -Mildly sclerotic aortic valve without stenosis. -Severe pulmonary hypertension with pressures estimated at 82 mmHg. -Mild aortic root dilatation at 4.1 cm. -Mildly dilated proximal ascending aorta at 2.8 cm. [facility] on 12/14 17: -Left main: No disease. -LAD: Heavily calcified. Proximally occluded, fills distally via SVG. -Diagonal: fills distally via OGDEN graft. -Left circumflex: Dominant vessel. 70% proximal stenosis. Totally occluded distally. -OM1: Proximally occluded. fills via SVG. -PDA: fills via SVG. -SVG to the PDA: Patent. -SVG to 2 diagonals: Patent. -SVG to OM1: Patent. -OGDEN: Patent. Reason For Visit: CHF EXACERBATION Physical Exam Vital Signs: Temp Pulse Resp BP Pulse Ox 98.0 F 75 20 107/66 93 11/13/19 13:01 11/14/19 02:00 11/13/19 15:25 11/13/19 15:25 11/13/19 14:11 Intake & Output 11/12/19 11/13/19 11/14/19 06:59 06:59 06:59 Intake Total 50 Output Total 900 Balance -850 Weight 94.8 kg Results Laboratory Results: 11/13/19 10:11 11/13/19 19:08 11/13/19 11/13/19 11/13/19 10:11 10:11 10:11 WBC 4.7 RBC 3.99 L Hgb 12.7 L Hct 38.1 MCV 96 MCH 31.9 MCHC 33.4 RDW 15.6 H Plt Count 116 L Seg Neutrophils % 78.1 H Sodium 138.7 Potassium 3.3 L Chloride 102 Carbon Dioxide 26 Anion Gap 11 BUN 21 H Creatinine 1.70 H Est GFR ( Amer) 47 L Glucose 176 H Lactic Acid Calcium 9.0 Total Bilirubin 1.8 H AST 30 Alkaline Phosphatase 114 Total Protein 6.8 Albumin 3.7 TSH 1.66 11/13/19 11/13/19 19:08 19:08 WBC RBC Hgb Hct MCV MCH MCHC RDW Plt Count Seg Neutrophils % Sodium 140.3 Potassium 4.0 Chloride 104 Carbon Dioxide 23 Anion Gap 13 BUN 21 H Creatinine 1.70 H Est GFR ( Amer) 47 L Glucose 153 H Lactic Acid 2.4 H Calcium 9.4 Total Bilirubin AST Alkaline Phosphatase Total Protein Albumin TSH 11/13/19 11/13/19 11/13/19 10:11 13:21 19:42 Troponin I 0.032 0.027 0.031 NT-Pro-B Natriuret Pep 8320 H 11/14/19 01:48 Troponin I 0.043 NT-Pro-B Natriuret Pep Impressions: Chest X-Ray 11/13/19 09:55 IMPRESSION: Suspect chronic bilateral interstitial airspace disease. Blunting of both costophrenic angles consistent with small effusions and or pleural thickening. 11/13/19 10:11 11/13/19 19:08 MCV 96 fl (80-97) 11/13/19 10:11 MCH 31.9 pg (27.0-33.4) 11/13/19 10:11 MCHC 33.4 g/dL (32.0-36.0) 11/13/19 10:11 RDW 15.6 % (11.5-14.0) H 11/13/19 10:11 Seg Neutrophils % 78.1 % (42-78) H 11/13/19 10:11 Chloride 104 mmol/L (98-107) 11/13/19 19:08 Carbon Dioxide 23 mmol/L (22-30) 11/13/19 19:08 Anion Gap 13 (5-19) 11/13/19 19:08 Est GFR ( Amer) 47 (>60) L 11/13/19 19:08 Glucose 153 mg/dL (75-110) H 11/13/19 19:08 Lactic Acid 2.4 mmol/L (0.7-2.1) H 11/13/19 19:08 Calcium 9.4 mg/dL (8.4-10.2) 11/13/19 19:08 Total Bilirubin 1.8 mg/dL (0.2-1.3) H 11/13/19 10:11 AST 30 U/L (17-59) 11/13/19 10:11 Alkaline Phosphatase 114 U/L (38-126) 11/13/19 10:11 Total Protein 6.8 g/dL (6.3-8.2) 11/13/19 10:11 Albumin 3.7 g/dL (3.5-5.0) 11/13/19 10:11 TSH 1.66 uIU/mL (0.47-4.68) 11/13/19 10:11 11/13/19 11/13/19 11/13/19 10:11 13:21 19:42 Troponin I 0.032 0.027 0.031 NT-Pro-B Natriuret Pep 8320 H 11/14/19 01:48 Troponin I 0.043 NT-Pro-B Natriuret Pep Current Medication List Generic Name Dose Route Start Last Admin Trade Name Freq PRN Reason Stop Dose Admin Acetaminophen 975 mg 11/13/19 16:48 Tylenol 325 Mg Tablet PO 12/13/19 16:47 QAMP PRN FOR PAIN Albuterol 2 puff 11/13/19 18:00 11/14/19 05:07 Proair Hfa Inhalation Aerosol 8.5 Gm Mdi IH 12/13/19 17:59 Not Given Q6 [facility] Albuterol/Ipratropium 3 ml 11/13/19 20:00 11/14/19 05:07 Duoneb 3 Ml Ampul NEB 12/13/19 19:59 Not Given RTQ6 [facility] Ascorbic Acid 500 mg 11/14/19 08:00 Vitamin C 500 Mg Tablet PO 12/14/19 07:59 QAM [facility] Aspirin 81 mg 11/14/19 12:00 Ecotrin 81 Mg Ec Tablet PO 12/14/19 11:59 NOON [facility] Atorvastatin Calcium 40 mg 11/13/19 22:00 11/13/19 21:02 Lipitor 40 Mg Tablet PO 12/13/19 21:59 Not Given QHS [facility] Finasteride 5 mg 11/14/19 12:00 Proscar 5 Mg Tablet PO 12/14/19 11:59 NOON [facility] Fluticasone/Vilanterol 1 inh 11/14/19 10:00 Breo 200-25 Mcg Ellipta 14 Dose/Dpi IH 12/14/19 09:59 DAILY [facility] Furosemide 40 mg 11/13/19 18:00 11/14/19 05:24 Lasix Inj/Pf 40 Mg/4 Ml Sdv IV 12/13/19 17:59 40 mg Q12A [facility] Administration Latanoprost 1 drop 11/13/19 22:00 11/13/19 21:02 Xalatan 0.005% Oph Soln 2.5 Ml OU 12/13/19 21:59 Not Given QHS [facility] Lorazepam 2 mg 11/13/19 22:51 11/14/19 05:27 Ativan Inj 2 Mg/1 Ml Vial IV 11/20/19 22:50 2 mg Q4HP PRN Administration AGITATION Mesalamine 800 mg 11/13/19 22:00 11/14/19 05:24 Asacol Sr 400 Mg Capsule PO 12/13/19 21:59 800 mg Q8 SAYRA Administration Metoprolol Succinate 25 mg 11/14/19 12:00 Toprol Xl 25 Mg Tab.Sr PO 12/14/19 11:59 NOON SAYRA Patient Own Medication 1 puff 11/13/19 16:43 Tiotropium [place] [Spiriva Respimat] IH 12/13/19 16:42 .ASDIR PRN SOB Patient Own Medication 1 drop 11/13/19 16:43 Carboxymethylcellulose Sodium [Refresh Tears] OU 12/13/19 16:42 .ASDIR PRN DRY EYE(S) Timolol Maleate 1 drop 11/14/19 10:00 Timoptic 0.5% Oph Soln 5 Ml OU 12/14/19 09:59 DAILY SAYRA Discontinued Medications Generic Name Dose Route Start Last Admin Trade Name Freq PRN Reason Stop Dose Admin Aspirin 324 mg 11/13/19 13:20 11/13/19 14:04 Aspirin 81 Mg Chewable Tablet PO 11/13/19 13:21 324 mg NOW ONE Administration Furosemide 40 mg 11/13/19 11:46 11/13/19 12:20 Lasix Inj/Pf 40 Mg/4 Ml Sdv IV 11/13/19 11:47 40 mg NOW ONE Administration Haloperidol Lactate Confirm 11/13/19 18:57 11/13/19 21:01 Haldol 5 Mg/Ml Inj 1 Ml Vial Administered 11/13/19 18:58 Not Given Dose 5 mg .ROUTE .STK-MED ONE Haloperidol Lactate 2 mg 11/13/19 19:45 11/13/19 21:01 Haldol 5 Mg/Ml Inj 1 Ml Vial IV 11/13/19 19:46 2 mg NOW ONE Administration Potassium Chloride/Water 20 meq in 50 mls @ 25 mls/hr 11/13/19 11:48 11/13/19 12:46 Potassium Chloride Jb 20 Meq/50 Ml IV 11/13/19 13:47 25 mls/hr NOW ONE Administration Lorazepam Confirm 11/13/19 22:17 11/14/19 05:07 Ativan Inj 2 Mg/1 Ml Vial Administered 11/13/19 22:18 Not Given Dose 2 mg .ROUTE .STK-MED ONE Nitroglycerin 0.5 gm 11/13/19 11:47 11/13/19 12:20 Nitrol 2% Ointment 1gm Packet TP 11/13/19 11:48 0.5 gm NOW ONE Administration Potassium Chloride 40 meq 11/13/19 11:49 11/13/19 12:50 Klor-Con 10 Meq Tablet Er PO 11/13/19 11:50 40 meq NOW ONE Administration Assessment & Plan - Diagnosis (1) Heart failure with preserved ejection fraction, borderline, class III Is this a current diagnosis for this admission?: Yes Plan: The patient is responding adequately to IV Lasix with a negative fluid balance of 850 cc. His most recent echocardiogram in the outpatient setting in September 2019 demonstrated preserved ejection fraction with mild RV systolic dysfunction and severe pulmonary hypertension which has remained stable from a prior echocardiogram in July 2018. Recommendations: -Continue with diuresis with Lasix 40 mg IV twice daily. -Replace electrolytes. -Restrict fluid intake to 1500 cc daily. -Low sodium diet, less than 1500 mg daily. -Strict intake and output. -Daily weights. -Cardiac telemetry. (2) Chronic kidney disease (CKD), stage IV (severe) Is this a current diagnosis for this admission?: Yes Plan: Today's creatinine is slightly improved from yesterday. Recommendations: -Diuresis as above with close attention to creatinine. -Replace electrolytes. (3) Elevated troponin Is this a current diagnosis for this admission?: Yes Plan: His troponin is detectable however still below the cutoff for acute injury. This is likely secondary to his heart failure exacerbation and not from an ACS. Recommendations: -Continue with clinical follow-up. -Continue with outpatient medications except Lasix. (4) Permanent atrial fibrillation Is this a current diagnosis for this admission?: Yes Plan: His heart rate is well controlled and he is anticoagulated with low-dose Eliquis. His telemetry demonstrates atrial fibrillation with a controlled heart rate and now sustained dysrhythmias. Recommendations: -Continue with current medical management.
[2019-11-14] MEDS: TIMOLOL MALEATE 0.5% OPH SOLN 5 ML OU SCH (10:42)
--- NOTE | 2019-11-14 11:56 | PDOC PROGRESS REPORT ---
Subjective Progress Note for:: 11/14/19 Subjective:: Patient complains of: Shortness of breath History of Present Illness: SANDEE FERNANDES is a 84 year old male who has history of coronary artery disease status post CABG and stents. He also has hypertension, congestive heart failure, pulmonary hypertension, dyslipidemia. Patient has preserved ejection fraction. He had an echocardiogram September 2019. Patient presents with dyspnea on exertion and he was hypoxic on exertion in the emergency room. His troponin level slightly elevated at 0.032 but decreased after that. He has lower extremity edema. Interval history: 11/14/2019: Patient seen and examined. He is sedated after receiving Ativan this morning. He has negative fluid balance. Was wondering well to diuretics. Renal function stable and actually slightly improved. Patient was agitated last night and earlier this morning but currently is stable and comfortable after receiving Ativan for sedation. Review of Systems All systems: Unable to review systems due to current status Physical Exam General appearance: PRESENT: no acute distress, cooperative Head exam: PRESENT: atraumatic, normocephalic Eye exam: PRESENT: EOMI, PERRLA Ear exam: ABSENT: bleeding, drainage Mouth exam: PRESENT: neck supple, tongue midline Neck exam: ABSENT: meningismus, tenderness, tracheostomy Respiratory exam: PRESENT: rales. ABSENT: accessory muscle use Cardiovascular exam: PRESENT: irregular rhythm, +S1, +S2. ABSENT: RRR GI/Abdominal exam: PRESENT: normal bowel sounds, soft. ABSENT: tenderness Rectal exam: PRESENT: deferred Neurological exam: PRESENT: Sedated. Psychiatric exam: PRESENT: Sedated Reason For Visit: CHF EXACERBATION Physical Exam Vital Signs: Temp Pulse Resp BP Pulse Ox 97.3 F 66 20 154/74 H 91 L 11/14/19 06:52 11/14/19 06:51 11/14/19 06:52 11/14/19 06:52 11/14/19 03:47 Intake & Output 11/13/19 11/14/19 11/15/19 06:59 06:59 06:59 Intake Total 50 Output Total 900 Balance -850 Weight 208 lb 15.971 oz Results Laboratory Results: 11/14/19 07:30 11/14/19 07:30 11/13/19 11/13/19 11/13/19 10:11 19:08 19:08 WBC RBC Hgb Hct MCV MCH MCHC RDW Plt Count Seg Neutrophils % Sodium 140.3 Potassium 4.0 Chloride 104 Carbon Dioxide 23 Anion Gap 13 BUN 21 H Creatinine 1.70 H Est GFR ( Amer) 47 L Glucose 153 H Lactic Acid 2.4 H Calcium 9.4 Magnesium Total Bilirubin AST Alkaline Phosphatase Total Protein Albumin Triglycerides Cholesterol LDL Cholesterol Direct VLDL Cholesterol HDL Cholesterol TSH 1.66 11/14/19 11/14/19 07:30 07:30 WBC 5.1 RBC 4.08 L Hgb 13.0 L Hct 38.9 MCV 95 MCH 31.9 MCHC 33.4 RDW 15.6 H Plt Count 108 L Seg Neutrophils % 77.3 Sodium 141.1 Potassium 3.9 Chloride 103 Carbon Dioxide 28 Anion Gap 10 BUN 22 H Creatinine 1.63 H Est GFR ( Amer) 49 L Glucose 111 H Lactic Acid Calcium 9.5 Magnesium 2.2 Total Bilirubin 2.2 H AST 33 Alkaline Phosphatase 129 H Total Protein 6.7 Albumin 3.6 Triglycerides 104 Cholesterol 82.02 LDL Cholesterol Direct 41 VLDL Cholesterol 21.0 HDL Cholesterol 24 L TSH 11/13/19 11/13/19 11/13/19 10:11 13:21 19:42 Troponin I 0.032 0.027 0.031 NT-Pro-B Natriuret Pep 8320 H 11/14/19 01:48 Troponin I 0.043 NT-Pro-B Natriuret Pep Impressions: Chest X-Ray 11/14/19 06:00 IMPRESSION: Unchanged radiographic appearance of the chest. Assessment and Plan - Diagnosis (1) Heart failure with preserved ejection fraction, borderline, class III Is this a current diagnosis for this admission?: Yes Plan: Acute on chronic diastolic CHF Normal EF on echocardiogram September 2019 Continue to monitor on telemetry. Continue IV Lasix Daily weight Strict I&O (2) Chronic kidney disease (CKD), stage IV (severe) Is this a current diagnosis for this admission?: Yes Plan: Continue to monitor renal function (3) Elevated troponin Is this a current diagnosis for this admission?: Yes Plan: Flat. No chest pain. Cardiology involved. (4) Permanent atrial fibrillation Is this a current diagnosis for this admission?: Yes Plan: Rate controlled. (5) CAD (coronary artery disease) Is this a current diagnosis for this admission?: Yes Plan: Continue current cardiac medications (6) Dyslipidemia Is this a current diagnosis for this admission?: Yes Plan: Continue statin treatment (7) Delirium Is this a current diagnosis for this admission?: Yes Plan: Multifactorial. Continue Ativan as needed.
[2019-11-14] MEDS: ASPIRIN 81 MG TABLET, ENT COATED PO SCH (13:06)
[2019-11-14] MEDS: FINASTERIDE 5 MG TABLET PO SCH (13:06)
[2019-11-14] MEDS: METOPROLOL SUCCINATE 25 MG TAB.SR.24H PO SCH (13:06)
[2019-11-14 13:23] LABS: ANION GAP 10 (5-19); BLOOD UREA NITROGEN 22 mg/dL (7-20); CALCIUM 9.5 mg/dL (8.4-10.2); CARBON DIOXIDE 27 mmol/L (22-30); CHLORIDE 104 mmol/L (98-107); GLUCOSE 116 mg/dL (75-110); POTASSIUM 4.2 mmol/L (3.6-5.0)
[2019-11-14 15:48] LABS: ARTERIAL BLOOD BASE EXCESS -1.3 mmol/L; ARTERIAL BLOOD FIO2 ROOM TEMP; ARTERIAL BLOOD H2CO3 0.98 mmol/L (1.05-1.35); ARTERIAL BLOOD HCO3 21.9 mmol/L (20-24); ARTERIAL BLOOD O2 SATURATION 94.6 % (94-98); ARTERIAL BLOOD PCO2 32.5 mmHg (35-45); ARTERIAL BLOOD PH 7.45 (7.35-7.45); ARTERIAL BLOOD PO2 68.4 mmHg (80-100); ARTERIAL BLOOD TOTAL CO2 22.9 mmol/L (23-27)
--- NOTE | 2019-11-14 16:58 | RADIOLOGY REPORT (SQ) ---
EXAM DESCRIPTION: CHEST SINGLE VIEW IMAGES COMPLETED DATE/TIME: 11/14/2019 4:19 pm REASON FOR STUDY: SOB COMPARISON: AP view of the chest from 11/14/2019. EXAM PARAMETERS: NUMBER OF VIEWS: One view. TECHNIQUE: An AP view of the chest was obtained. RADIATION DOSE: NA LIMITATIONS: None. FINDINGS: LUNGS AND PLEURA: Unchanged appearance of the lungs and pleura. MEDIASTINUM AND HILAR STRUCTURES: Stable mediastinal and hilar contours. HEART AND VASCULAR STRUCTURES: Unchanged cardiomegaly. BONES: No acute findings. HARDWARE: Sternotomy wires. OTHER: No other finding. IMPRESSION: Unchanged radiographic appearance of the chest. TECHNICAL DOCUMENTATION: JOB ID: [id number] 2010 [employer]- All Rights Reserved Reading location - IP/workstation name: [email or web address]
[2019-11-14] MEDS: ATORVASTATIN CALCIUM 40 MG TABLET PO SCH (21:39)
[2019-11-14] MEDS: LATANOPROST 0.005% OPH SOLN 2.5 ML OU SCH (21:40)
[2019-11-15] MEDS: ALBUTEROL SULFATE HFA (90 MCG/PUFF) 200 PUFF/8.5 GM MDI IH SCH ×4 (02:45→18:16)
[2019-11-15] MEDS: IPRATROPIUM/ALBUTEROL 0.5-2.5 MG/3 ML AMPUL NEB SCH ×3 (05:20→21:16)
[2019-11-15] MEDS: MESALAMINE 400 MG CAPSULE.DR PO SCH ×3 (05:21→21:17)
[2019-11-15] MEDS: FUROSEMIDE INJ/PF 40 MG/4 ML SDV IV SCH ×2 (05:30→18:18)
[2019-11-15 06:43] LABS: HEMATOCRIT 39.6 % (37.9-51.0); HEMOGLOBIN 13.3 g/dL (13.5-17.0); MEAN CORPUSCULAR HEMOGLOBIN 31.9 pg (27.0-33.4); MEAN CORPUSCULAR HGB CONC 33.7 g/dL (32.0-36.0); MEAN CORPUSCULAR VOLUME 95 fl (80-97); PLATELET COUNT 125 10^3/uL (150-450); RED BLOOD COUNT 4.17 10^6/uL (4.35-5.55); RED CELL DISTRIBUTION WIDTH 15.7 % (11.5-14.0); WHITE BLOOD COUNT 7.7 10^3/uL (4.0-10.5)
--- NOTE | 2019-11-15 09:57 | PDOC PROGRESS REPORT ---
Subjective Progress Note for:: 11/15/19 Subjective:: SANDEE FERNANDES is a 84 year old male, retired [employer] with history of coronary artery disease status post 4 vessel CABG in 2001 and stent in 2012 and left main stenting in December 2016 with a 3.5 mm x 12 mm Xience VIC as well as stenting of the left circumflex with a 3.5 mm x 23 mm Xience VIC, hypertension, heart failure, pulmonary hypertension, hyperlipidemia who is consulted to our service for evaluation and further treatment of heart failure. His echocardiogram in July 2018 was most remarkable for severe pulmonary hypertension, preserved ejection fraction and stable aortic root aneurysm at 3.9 cm. I last evaluated him in my office on 09/20/2019 at which time he was found to be mildly fluid overloaded therefore his Lasix was increased but unfortunately he was not able to follow-up as scheduled 2 weeks later. His states that he had been doing well until approximately 1 to 2 weeks ago when he began to notice lower extremity edema associated with shortness of breath which progressed to the point he just spent the last 2 or 3 days in bed and unable to walk without assistance. He is evaluated in the em ergency room where he is in no acute distress in his bed. He specifically denies chest pain, palpitations, syncope, presyncope as well as shortness of breath. 11/15/2019: The patient had an uneventful night and did not require any medications for agitation. His blood pressure is improved as well as his creatinine. His proBNP increased to 10,700. His fluid balance is now -1.2 L. Unfortunately this morning he is very sleepy and almost obtunded even though he did not receive any psychoactive medications. He does open his eyes but is otherwise unable to answer any questions. He does not appear to be in any distress. Physical exam on 11/13/2019: GENERAL: Sleeping, responsive to loud commands but cannot engage in a conversation. Not in acute distress. Disheveled. HEENT: Normocephalic, atraumatic. Pupils equal. Sclerae anicteric. Oropharynx moist. NECK: No JVD. No carotid bruits. LUNGS: Decreased breath sounds bilaterally. Normal respiratory effort without the use of accessory muscles or intercostal retractions. CARDIOVASCULAR: Irregularly irregular rate and rhythm, normal S1 and S2 without rubs, or gallops. 2/6 crescendo decrescendo murmur at the right upper sternal border. PMI not displaced. EXTREMITIES: Trace to 1 + pitting edema bilaterally, no cyanosis up to the thig hs, no clubbing. +2 pulses femoral and pedal pulses bilaterally. SKIN: No lesions or rashes. MUSCULOSKELETAL: No chest tenderness to palpation. NEUROLOGIC: Nonfocal. No gross sensory or motor deficits bilateral upper or lower extremities. Cardiac studies: Echocardiogram on 09/25/2019: -LV is normal in size. -Mild concentric LVH. -Normal ejection fraction. -Diastolic dysfunction is indeterminate in the presence of atrial fibrillation. -Flattened septum consistent with RV pressure/volume overload. -Moderate RVE with mildly reduced systolic function. -Moderate biatrial enlargement. -Mild MAC without stenosis. -Mild to moderate MR, severe TR, mild AI, mild to moderate PI. -Severely elevated pulmonary pressures and estimated between 75 and 80 mmHg. -Borderline dilated aortic root at 3.7 cm. Echocardiogram on 08/02/18: -LV is normal in size. -Mild concentric LVH. -Ejection fraction is normal. -RV pressure/volume overload is present. -Mild to moderate RVE with moderately decreased systolic function. -Severe biatrial enlargement. -Mild MAC without stenosis -Mild to moderate MR, moderate to severe TR, mild AI, mild PI. -Severe pulmonary hypertension. -Mildly dilated aortic root at 3.9 cm. Echocardiogram on 07/29/17: -The patient was in slow atrial fibrillation. -The left ventricle is normal in size. -Mild LVH. -Grossly normal EF. -Flattened septum consistent with RV pressure overload. -Moderate to severe RVE with borderline reduced systolic function. -Severe LAE, moderate JEAN. -Mild MAC without stenosis. -Moderate MR, severe TR, mild to moderate AI, mild PI. -Mildly sclerotic aortic valve without stenosis. -Severe pulmonary hypertension with pressures estimated at 82 mmHg. -Mild aortic root dilatation at 4.1 cm. -Mildly dilated proximal ascending aorta at 2.8 cm. [facility] on 12/14 17: -Left main: No disease. -LAD: Heavily calcified. Proximally occluded, fills distally via SVG. -Diagonal: fills distally via OGDEN graft. -Left circumflex: Dominant vessel. 70% proximal stenosis. Totally occluded distally. -OM1: Proximally occluded. fills via SVG. -PDA: fills via SVG. -SVG to the PDA: Patent. -SVG to 2 diagonals: Patent. -SVG to OM1: Patent. -OGDEN: Patent. Reason For Visit: CHF EXACERBATION Physical Exam Vital Signs: Temp Pulse Resp BP Pulse Ox 98.3 F 84 24 H 136/76 H 96 11/15/19 03:43 11/15/19 03:43 11/15/19 03:43 11/15/19 03:43 11/15/19 03:43 Intake & Output 11/13/19 11/14/19 11/15/19 06:59 06:59 06:59 Intake Total 50 50 Output Total 900 425 Balance -850 -375 Weight 94.8 kg 94.8 kg Results Laboratory Results: 11/14/19 12:43 11/14/19 11/14/19 11/14/19 07:30 07:30 12:43 WBC 5.1 RBC 4.08 L Hgb 13.0 L Hct 38.9 MCV 95 MCH 31.9 MCHC 33.4 RDW 15.6 H Plt Count 108 L Seg Neutrophils % 77.3 Carbonic Acid HCO3/H2CO3 Ratio ABG pH ABG pCO2 ABG pO2 ABG HCO3 ABG O2 Saturation ABG Base Excess FiO2 Sodium 141.1 140.8 Potassium 3.9 4.2 Chloride 103 104 Carbon Dioxide 28 27 Anion Gap 10 10 BUN 22 H 22 H Creatinine 1.63 H 1.51 H Est GFR ( Amer) 49 L 54 L Glucose 111 H 116 H Calcium 9.5 9.5 Magnesium 2.2 Total Bilirubin 2.2 H AST 33 Alkaline Phosphatase 129 H Total Protein 6.7 Albumin 3.6 Triglycerides 104 Cholesterol 82.02 LDL Cholesterol Direct 41 VLDL Cholesterol 21.0 HDL Cholesterol 24 L 11/14/19 15:35 WBC RBC Hgb Hct MCV MCH MCHC RDW Plt Count Seg Neutrophils % Carbonic Acid 0.98 L HCO3/H2CO3 Ratio 22:1 ABG pH 7.45 ABG pCO2 32.5 L ABG pO2 68.4 L ABG HCO3 21.9 ABG O2 Saturation 94.6 ABG Base Excess -1.3 FiO2 ROOM TEMP Sodium Potassium Chloride Carbon Dioxide Anion Gap BUN Creatinine Est GFR ( Amer) Glucose Calcium Magnesium Total Bilirubin AST Alkaline Phosphatase Total Protein Albumin Triglycerides Cholesterol LDL Cholesterol Direct VLDL Cholesterol HDL Cholesterol 11/13/19 11/13/19 11/13/19 10:11 13:21 19:42 Troponin I 0.032 0.027 0.031 NT-Pro-B Natriuret Pep 8320 H 11/14/19 11/14/19 01:48 16:44 Troponin I 0.043 NT-Pro-B Natriuret Pep 76204 H Impressions: Chest X-Ray 11/14/19 06:00 IMPRESSION: Unchanged radiographic appearance of the chest. 11/14/19 12:43 MCV 95 fl (80-97) 11/14/19 07:30 MCH 31.9 pg (27.0-33.4) 11/14/19 07:30 MCHC 33.4 g/dL (32.0-36.0) 11/14/19 07:30 RDW 15.6 % (11.5-14.0) H 11/14/19 07:30 Seg Neutrophils % 77.3 % (42-78) 11/14/19 07:30 Carbonic Acid 0.98 mmol/L (1.05-1.35) L 11/14/19 15:35 HCO3/H2CO3 Ratio 22:1 11/14/19 15:35 ABG pH 7.45 (7.35-7.45) 11/14/19 15:35 ABG pCO2 32.5 mmHg (35-45) L 11/14/19 15:35 ABG pO2 68.4 mmHg (80-100) L 11/14/19 15:35 ABG HCO3 21.9 mmol/L (20-24) 11/14/19 15:35 ABG O2 Saturation 94.6 % (94-98) 11/14/19 15:35 ABG Base Excess -1.3 mmol/L 11/14/19 15:35 FiO2 ROOM TEMP 11/14/19 15:35 Chloride 104 mmol/L (98-107) 11/14/19 12:43 Carbon Dioxide 27 mmol/L (22-30) 11/14/19 12:43 Anion Gap 10 (5-19) 11/14/19 12:43 Est GFR ( Amer) 54 (>60) L 11/14/19 12:43 Glucose 116 mg/dL (75-110) H 11/14/19 12:43 Lactic Acid 2.4 mmol/L (0.7-2.1) H 11/13/19 19:08 Calcium 9.5 mg/dL (8.4-10.2) 11/14/19 12:43 Magnesium 2.2 mg/dL (1.6-2.3) 11/14/19 07:30 Total Bilirubin 2.2 mg/dL (0.2-1.3) H 11/14/19 07:30 AST 33 U/L (17-59) 11/14/19 07:30 Alkaline Phosphatase 129 U/L (38-126) H 11/14/19 07:30 Total Protein 6.7 g/dL (6.3-8.2) 11/14/19 07:30 Albumin 3.6 g/dL (3.5-5.0) 11/14/19 07:30 Triglycerides 104 mg/dL (<150) 11/14/19 07:30 Cholesterol 82.02 mg/dL (0-200) 11/14/19 07:30 LDL Cholesterol Direct 41 mg/dL (<100) 11/14/19 07:30 VLDL Cholesterol 21.0 mg/dL (10-31) 11/14/19 07:30 HDL Cholesterol 24 mg/dL (>40) L 11/14/19 07:30 TSH 1.66 uIU/mL (0.47-4.68) 11/13/19 10:11 11/13/19 11/13/19 11/13/19 10:11 13:21 19:42 Troponin I 0.032 0.027 0.031 NT-Pro-B Natriuret Pep 8320 H 11/14/19 11/14/19 01:48 16:44 Troponin I 0.043 NT-Pro-B Natriuret Pep 19859 H Current Medication List Generic Name Dose Route Start Last Admin Trade Name Freq PRN Reason Stop Dose Admin Acetaminophen 975 mg 11/13/19 16:48 Tylenol 325 Mg Tablet PO 12/13/19 16:47 QAMP PRN FOR PAIN Albuterol 2 puff 11/13/19 18:00 11/15/19 05:30 Proair Hfa Inhalation Aerosol 8.5 Gm Mdi IH 12/13/19 17:59 2 inh Q6 SAYRA Administration Albuterol/Ipratropium 3 ml 11/13/19 20:00 05/14/20 05:21 Duoneb 3 Ml Ampul NEB 12/13/19 19:59 Not Given RTQ6 [facility] Ascorbic Acid 500 mg 11/14/19 08:00 11/14/19 09:10 Vitamin C 500 Mg Tablet PO 12/14/19 07:59 Not Given QAM [facility] Aspirin 81 mg 11/14/19 12:00 11/14/19 13:06 Ecotrin 81 Mg Ec Tablet PO 12/14/19 11:59 81 mg NOON SAYRA Administration Atorvastatin Calcium 40 mg 11/13/19 22:00 11/14/19 21:39 Lipitor 40 Mg Tablet PO 12/13/19 21:59 40 mg QHS SAYRA Administration Finasteride 5 mg 11/14/19 12:00 11/14/19 13:06 Proscar 5 Mg Tablet PO 12/14/19 11:59 5 mg NOON SAYRA Administration Fluticasone/Vilanterol 1 inh 11/14/19 10:00 11/14/19 09:10 Breo 200-25 Mcg Ellipta 14 Dose/Dpi IH 12/14/19 09:59 Not Given DAILY [facility] Furosemide 40 mg 11/13/19 18:00 11/15/19 05:30 Lasix Inj/Pf 40 Mg/4 Ml Sdv IV 12/13/19 17:59 40 mg Q12A SAYRA Administration Latanoprost 1 drop 11/13/19 22:00 11/14/19 21:40 Xalatan 0.005% Oph Soln 2.5 Ml OU 12/13/19 21:59 1 drop QHS SAYRA Administration Lorazepam 2 mg 11/13/19 22:51 11/14/19 05:27 Ativan Inj 2 Mg/1 Ml Vial IV 11/20/19 22:50 2 mg Q4HP PRN Administration AGITATION Mesalamine 800 mg 11/13/19 22:00 11/15/19 05:21 Asacol Sr 400 Mg Capsule PO 12/13/19 21:59 Not Given Q8 SAYRA Metoprolol Succinate 25 mg 11/14/19 12:00 11/14/19 13:06 Toprol Xl 25 Mg Tab.Sr PO 12/14/19 11:59 25 mg NOON SAYRA Administration Patient Own Medication 1 puff 11/13/19 16:43 Tiotropium Frederick [Spiriva Respimat] IH 12/13/19 16:42 .ASDIR PRN SOB Patient Own Medication 1 drop 11/13/19 16:43 Carboxymethylcellulose Sodium [Refresh Tears] OU 12/13/19 16:42 .ASDIR PRN DRY EYE(S) Timolol Maleate 1 drop 11/14/19 10:00 11/14/19 10:42 Timoptic 0.5% Oph Soln 5 Ml OU 12/14/19 09:59 1 drop DAILY SAYRA Administration Discontinued Medications Generic Name Dose Route Start Last Admin Trade Name Freq PRN Reason Stop Dose Admin Aspirin 324 mg 11/13/19 13:20 11/13/19 14:04 Aspirin 81 Mg Chewable Tablet PO 11/13/19 13:21 324 mg NOW ONE Administration Furosemide 40 mg 11/13/19 11:46 11/13/19 12:20 Lasix Inj/Pf 40 Mg/4 Ml Sdv IV 11/13/19 11:47 40 mg NOW ONE Administration Haloperidol Lactate Confirm 11/13/19 18:57 11/13/19 21:01 Haldol 5 Mg/Ml Inj 1 Ml Vial Administered 11/13/19 18:58 Not Given Dose 5 mg .ROUTE .STK-MED ONE Haloperidol Lactate 2 mg 11/13/19 19:45 11/13/19 21:01 Haldol 5 Mg/Ml Inj 1 Ml Vial IV 11/13/19 19:46 2 mg NOW ONE Administration Potassium Chloride/Water 20 meq in 50 mls @ 25 mls/hr 11/13/19 11:48 11/13/19 12:46 Potassium Chloride Jb 20 Meq/50 Ml IV 11/13/19 13:47 25 mls/hr NOW ONE Administration Lorazepam Confirm 11/13/19 22:17 11/14/19 05:07 Ativan Inj 2 Mg/1 Ml Vial Administered 11/13/19 22:18 Not Given Dose 2 mg .ROUTE .STK-MED ONE Nitroglycerin 0.5 gm 11/13/19 11:47 11/13/19 12:20 Nitrol 2% Ointment 1gm Packet TP 11/13/19 11:48 0.5 gm NOW ONE Administration Potassium Chloride 40 meq 11/13/19 11:49 11/13/19 12:50 Klor-Con 10 Meq Tablet Er PO 11/13/19 11:50 40 meq NOW ONE Administration Assessment & Plan - Diagnosis (1) Heart failure with preserved ejection fraction, borderline, class III Is this a current diagnosis for this admission?: Yes Plan: He is now 1.2 L negative in his fluid balance. He is very sleepy and almost obtunded this morning and only responds to loud commands at which time he is able to open his eyes but falls back asleep fairly quick. I do not have a clear explanation for his mental status change however he did not get any psychoactive medications last night. His Stallings does show some sediment and I am concerned about the possibility of a UTI or infection somewhere else therefore I spoke with his nurse and his hospital should be obtaining urinalysis. His most recent echocardiogram in the outpatient setting in September 2019 demonstrated preserved ejection fraction with mild RV systolic dysfunction and severe pulmonary hypertension which has remained stable from a prior echocardiogram in July 2018. Recommendations: -Continue with diuresis with Lasix 40 mg IV twice daily. -Replace electrolytes. -Restrict fluid intake to 1500 cc daily. -Low sodium diet, less than 1500 mg daily. -Strict intake and output. -Daily weights. -Cardiac telemetry. (2) Chronic kidney disease (CKD), stage IV (severe) Is this a current diagnosis for this admission?: Yes Plan: His creatinine yesterday was improved. Recommendations: -Diuresis as above with close attention to creatinine. -Replace electrolytes. -Check BMP tomorrow. (3) Elevated troponin Is this a current diagnosis for this admission?: Yes Plan: His troponin is detectable however still below the cutoff for acute injury. This is likely secondary to his heart failure exacerbation and not from an ACS. Recommendations: -Continue with clinical follow-up. -Continue with outpatient medications except Lasix. (4) Permanent atrial fibrillation Is this a current diagnosis for this admission?: Yes Plan: His heart rate is well controlled and he had been anticoagulated with low-dose Eliquis in the outpatient setting however his medication has not been restarted while in the hospital. His telemetry demonstrates atrial fibrillation with a controlled heart rate and now sustained dysrhythmias. Recommendations: -Continue with current medical management. -Restart Eliquis 2.5 mg twice daily.
[2019-11-15] MEDS: TIMOLOL MALEATE 0.5% OPH SOLN 5 ML OU SCH (10:02)
--- NOTE | 2019-11-15 11:25 | PDOC PROGRESS REPORT ---
Subjective Progress Note for:: 11/15/19 Subjective:: Patient complains of: Shortness of breath History of Present Illness: SANDEE FERNANDES is a 84 year old male who has history of coronary artery disease status post CABG and stents. He also has hypertension, congestive heart failure, pulmonary hypertension, dyslipidemia. Patient has preserved ejection fraction. He had an echocardiogram September 2019. Patient presents with dyspnea on exertion and he was hypoxic on exertion in the emergency room. His troponin level slightly elevated at 0.032 but decreased after that. He has lower extremity edema. Interval history: 11/14/2019: Patient seen and examined. He is sedated after receiving Ativan this morning. He has negative fluid balance. Was wondering well to diuretics. Renal function stable and actually slightly improved. Patient was agitated last night and earlier this morning but currently is stable and comfortable after receiving Ativan for sedation. 11/15/2019: Patient was seen and examined. He still sedated. But apparently has not received any sedating medications last night. I believe he is responding well to diuresis. He had negative fluid balance. Ventricular ectopy on EKG. He has not been getting his medications due to lethargy. Review of Systems All systems: Unable to review systems due to current status Physical Exam General appearance: PRESENT: no acute distress, cooperative Head exam: PRESENT: atraumatic, normocephalic Eye exam: PRESENT: EOMI, PERRLA Ear exam: ABSENT: bleeding, drainage Mouth exam: PRESENT: neck supple, tongue midline Neck exam: ABSENT: meningismus, tenderness, tracheostomy Respiratory exam: PRESENT: rales. ABSENT: accessory muscle use Cardiovascular exam: PRESENT: irregular rhythm, +S1, +S2. ABSENT: RRR GI/Abdominal exam: PRESENT: normal bowel sounds, soft. ABSENT: tenderness Rectal exam: PRESENT: deferred Neurological exam: PRESENT: Sedated. Psychiatric exam: PRESENT: Sedated Reason For Visit: CHF EXACERBATION Physical Exam Vital Signs: Temp Pulse Resp BP Pulse Ox 97.6 F 92 18 139/74 H 98 11/15/19 08:17 11/15/19 08:17 11/15/19 08:17 11/15/19 08:17 11/15/19 08:17 Intake & Output 11/14/19 11/15/19 11/16/19 06:59 06:59 06:59 Intake Total 50 50 Output Total 900 550 Balance -850 -500 Weight 208 lb 15.971 oz 208 lb 15.971 oz Results Laboratory Results: 11/15/19 06:26 11/14/19 12:43 11/14/19 11/14/19 11/15/19 12:43 15:35 06:26 WBC 7.7 RBC 4.17 L Hgb 13.3 L Hct 39.6 MCV 95 MCH 31.9 MCHC 33.7 RDW 15.7 H Plt Count 125 L Carbonic Acid 0.98 L HCO3/H2CO3 Ratio 22:1 ABG pH 7.45 ABG pCO2 32.5 L ABG pO2 68.4 L ABG HCO3 21.9 ABG O2 Saturation 94.6 ABG Base Excess -1.3 FiO2 ROOM TEMP Sodium 140.8 Potassium 4.2 Chloride 104 Carbon Dioxide 27 Anion Gap 10 BUN 22 H Creatinine 1.51 H Est GFR ( Amer) 54 L Glucose 116 H Calcium 9.5 11/13/19 11/13/19 11/13/19 10:11 13:21 19:42 Troponin I 0.032 0.027 0.031 NT-Pro-B Natriuret Pep 8320 H 11/14/19 11/14/19 01:48 16:44 Troponin I 0.043 NT-Pro-B Natriuret Pep 03620 H Impressions: Chest X-Ray 11/14/19 06:00 IMPRESSION: Unchanged radiographic appearance of the chest. Assessment and Plan - Diagnosis (1) Heart failure with preserved ejection fraction, borderline, class III Is this a current diagnosis for this admission?: Yes Plan: Acute on chronic diastolic CHF Normal EF on echocardiogram September 2019 Continue to monitor on telemetry. Continue IV Lasix Daily weight Strict I&O (2) Chronic kidney disease (CKD), stage IV (severe) Is this a current diagnosis for this admission?: Yes Plan: Continue to monitor renal function (3) Elevated troponin Is this a current diagnosis for this admission?: Yes Plan: Flat. No chest pain. Cardiology involved. (4) Permanent atrial fibrillation Is this a current diagnosis for this admission?: Yes Plan: Rate controlled. Continue Eliquis. (5) CAD (coronary artery disease) Is this a current diagnosis for this admission?: Yes Plan: Continue current cardiac medications (6) Dyslipidemia Is this a current diagnosis for this admission?: Yes Plan: Continue statin treatment (7) Delirium Is this a current diagnosis for this admission?: Yes Plan: Multifactorial. Stop Ativan due to excessive sedation. Start low-dose Seroquel at night.
[2019-11-15] MEDS: ASCORBIC ACID 500 MG TABLET PO SCH (13:50)
[2019-11-15] MEDS: FLUTICASONE/VILANTEROL 200-25 MCG/DOSE IH SCH (13:52)
[2019-11-15] MEDS: APIXABAN 2.5 MG TABLET PO SCH ×2 (13:53→18:15)
[2019-11-15] MEDS: ASPIRIN 81 MG TABLET, ENT COATED PO SCH (13:56)
[2019-11-15] MEDS: METOPROLOL SUCCINATE 25 MG TAB.SR.24H PO SCH (13:57)
[2019-11-15] MEDS: FINASTERIDE 5 MG TABLET PO SCH (13:57)
[2019-11-15] MEDS: ATORVASTATIN CALCIUM 40 MG TABLET PO SCH (21:17)
[2019-11-15] MEDS: LATANOPROST 0.005% OPH SOLN 2.5 ML OU SCH (21:18)
[2019-11-15] MEDS ORDERED: QUETIAPINE FUMARATE 25 MG TABLET PO SCH (22:00)
[2019-11-16] MEDS: ALBUTEROL SULFATE HFA (90 MCG/PUFF) 200 PUFF/8.5 GM MDI IH SCH ×4 (04:45→17:54)
[2019-11-16] MEDS: MESALAMINE 400 MG CAPSULE.DR PO SCH ×2 (06:07→15:18)
[2019-11-16 06:10] LABS: HEMOGLOBIN 14.2 g/dL (13.5-17.0); MEAN CORPUSCULAR HGB CONC 33.9 g/dL (32.0-36.0); MEAN CORPUSCULAR VOLUME 94 fl (80-97); PLATELET COUNT 138 10^3/uL (150-450); RED BLOOD COUNT 4.46 10^6/uL (4.35-5.55); RED CELL DISTRIBUTION WIDTH 15.6 % (11.5-14.0); WHITE BLOOD COUNT 8.2 10^3/uL (4.0-10.5)
[2019-11-16 06:32] LABS: ANION GAP 13 (5-19); BLOOD UREA NITROGEN 31 mg/dL (7-20); CALCIUM 9.6 mg/dL (8.4-10.2); CARBON DIOXIDE 28 mmol/L (22-30); CHLORIDE 104 mmol/L (98-107); GLUCOSE 126 mg/dL (75-110); POTASSIUM 3.6 mmol/L (3.6-5.0)
--- NOTE | 2019-11-16 07:58 | PDOC PROGRESS REPORT ---
Subjective Progress Note for:: 11/16/19 Subjective:: SANDEE FERNANDES is a 84 year old male, retired [employer] with history of coronary artery disease status post 4 vessel CABG in 2001 and stent in 2012 and left main stenting in December 2016 with a 3.5 mm x 12 mm Xience VIC as well as stenting of the left circumflex with a 3.5 mm x 23 mm Xience VIC, hypertension, heart failure, pulmonary hypertension, hyperlipidemia who is consulted to our service for evaluation and further treatment of heart failure. His echocardiogram in July 2018 was most remarkable for severe pulmonary hypertension, preserved ejection fraction and stable aortic root aneurysm at 3.9 cm. I last evaluated him in my office on 09/20/2019 at which time he was found to be mildly fluid overloaded therefore his Lasix was increased but unfortunately he was not able to follow-up as scheduled 2 weeks later. His states that he had been doing well until approximately 1 to 2 weeks ago when he began to notice lower extremity edema associated with shortness of breath which progressed to the point he just spent the last 2 or 3 days in bed and unable to walk without assistance. He is evaluated in the em ergency room where he is in no acute distress in his bed. He specifically denies chest pain, palpitations, syncope, presyncope as well as shortness of breath. 11/16/2019: The patient had an uneventful night and did not require any medications for agitation. The nursing staff reports that the patient is having trouble swallowing and and has been choking on just small sips of fluids. They also r eported that the patient has not received any of his oral medications because he is unable to swallow properly. He is slightly more awake this morning although his mental status is not back to his baseline. His creatinine this morning continues to be at his baseline and his electrolytes are within normal limits. He is currently -3.8 L since admission. Physical exam on 11/13/2019: GENERAL: Sleeping, responsive to loud commands but cannot engage in a conversation. Not in acute distress. Disheveled. HEENT: Normocephalic, atraumatic. Pupils equal. Sclerae anicteric. Oropharynx moist. NECK: No JVD. No carotid bruits. LUNGS: Decreased breath sounds bilaterally. Normal respiratory effort without the use of accessory muscles or intercostal retractions. CARDIOVASCULAR: Irregularly irregular rate and rhythm, normal S1 and S2 without rubs, or gallops. 2/6 crescendo decrescendo murmur at the right upper sternal border. PMI not displaced. EXTREMITIES: No edema bilaterally, no cyanosis up to the thighs, no clubbing. +2 pulses femoral and pedal pulses bilaterally. SKIN: No lesions or rashes. MUSCULOSKELETAL: No chest tenderness to palpation. NEUROLOGIC: Nonfocal. No gross sensory or motor deficits bilateral upper or lower extremities. Cardiac studies: Echocardiogram on 09/25/2019: -LV is normal in size. -Mild concentric LVH. -Normal ejection fraction. -Diastolic dysfunction is indeterminate in the presence of atrial fibrillation. -Flattened septum consistent with RV pressure/volume overload. -Moderate RVE with mildly reduced systolic function. -Moderate biatrial enlargement. -Mild MAC without stenosis. -Mild to moderate MR, severe TR, mild AI, mild to moderate PI. -Severely elevated pulmonary pressures and estimated between 75 and 80 mmHg. -Borderline dilated aortic root at 3.7 cm. Echocardiogram on 08/02/18: -LV is normal in size. -Mild concentric LVH. -Ejection fraction is normal. -RV pressure/volume overload is present. -Mild to moderate RVE with moderately decreased systolic function. -Severe biatrial enlargement. -Mild MAC without stenosis -Mild to moderate MR, moderate to severe TR, mild AI, mild PI. -Severe pulmonary hypertension. -Mildly dilated aortic root at 3.9 cm. Echocardiogram on 07/29/17: -The patient was in slow atrial fibrillation. -The left ventricle is normal in size. -Mild LVH. -Grossly normal EF. -Flattened septum consistent with RV pressure overload. -Moderate to severe RVE with borderline reduced systolic function. -Severe LAE, moderate JEAN. -Mild MAC without stenosis. -Moderate MR, severe TR, mild to moderate AI, mild PI. -Mildly sclerotic aortic valve without stenosis. -Severe pulmonary hypertension with pressures estimated at 82 mmHg. -Mild aortic root dilatation at 4.1 cm. -Mildly dilated proximal ascending aorta at 2.8 cm. [facility] on 12/14 17: -Left main: No disease. -LAD: Heavily calcified. Proximally occluded, fills distally via SVG. -Diagonal: fills distally via OGDEN graft. -Left circumflex: Dominant vessel. 70% proximal stenosis. Totally occluded distally. -OM1: Proximally occluded. fills via SVG. -PDA: fills via SVG. -SVG to the PDA: Patent. -SVG to 2 diagonals: Patent. -SVG to OM1: Patent. -OGDEN: Patent. Reason For Visit: CHF EXACERBATION Physical Exam Vital Signs: Temp Pulse Resp BP Pulse Ox 98.4 F 90 28 H 100/84 98 11/15/19 20:15 11/16/19 02:00 11/15/19 20:15 11/15/19 20:15 11/16/19 00:45 Intake & Output 11/14/19 11/15/19 11/16/19 06:59 06:59 06:59 Intake Total 50 50 0 Output Total 676 709 4587 Balance -850 -500 -1200 Weight 94.8 kg 94.8 kg Results Laboratory Results: 11/16/19 05:48 11/15/19 11/16/19 06:26 05:48 WBC 7.7 8.2 RBC 4.17 L 4.46 Hgb 13.3 L 14.2 Hct 39.6 42.0 MCV 95 94 MCH 31.9 32.0 MCHC 33.7 33.9 RDW 15.7 H 15.6 H Plt Count 125 L 138 L 11/13/19 11/13/19 11/13/19 10:11 13:21 19:42 Troponin I 0.032 0.027 0.031 NT-Pro-B Natriuret Pep 8320 H 11/14/19 11/14/19 01:48 16:44 Troponin I 0.043 NT-Pro-B Natriuret Pep 38981 H Impressions: Chest X-Ray 11/14/19 06:00 IMPRESSION: Unchanged radiographic appearance of the chest. 11/16/19 05:48 11/16/19 05:48 MCV 94 fl (80-97) 11/16/19 05:48 MCH 32.0 pg (27.0-33.4) 11/16/19 05:48 MCHC 33.9 g/dL (32.0-36.0) 11/16/19 05:48 RDW 15.6 % (11.5-14.0) H 11/16/19 05:48 Seg Neutrophils % 77.3 % (42-78) 11/14/19 07:30 Carbonic Acid 0.98 mmol/L (1.05-1.35) L 11/14/19 15:35 HCO3/H2CO3 Ratio 22:1 11/14/19 15:35 ABG pH 7.45 (7.35-7.45) 11/14/19 15:35 ABG pCO2 32.5 mmHg (35-45) L 11/14/19 15:35 ABG pO2 68.4 mmHg (80-100) L 11/14/19 15:35 ABG HCO3 21.9 mmol/L (20-24) 11/14/19 15:35 ABG O2 Saturation 94.6 % (94-98) 11/14/19 15:35 ABG Base Excess -1.3 mmol/L 11/14/19 15:35 FiO2 ROOM TEMP 11/14/19 15:35 Chloride 104 mmol/L (98-107) 11/16/19 05:48 Carbon Dioxide 28 mmol/L (22-30) 11/16/19 05:48 Anion Gap 13 (5-19) 11/16/19 05:48 Est GFR ( Amer) 48 (>60) L 11/16/19 05:48 Glucose 126 mg/dL (75-110) H 11/16/19 05:48 Lactic Acid 2.4 mmol/L (0.7-2.1) H 11/13/19 19:08 Calcium 9.6 mg/dL (8.4-10.2) 11/16/19 05:48 Magnesium 2.2 mg/dL (1.6-2.3) 11/14/19 07:30 Total Bilirubin 2.2 mg/dL (0.2-1.3) H 11/14/19 07:30 AST 33 U/L (17-59) 11/14/19 07:30 Alkaline Phosphatase 129 U/L (38-126) H 11/14/19 07:30 Total Protein 6.7 g/dL (6.3-8.2) 11/14/19 07:30 Albumin 3.6 g/dL (3.5-5.0) 11/14/19 07:30 Triglycerides 104 mg/dL (<150) 11/14/19 07:30 Cholesterol 82.02 mg/dL (0-200) 11/14/19 07:30 LDL Cholesterol Direct 41 mg/dL (<100) 11/14/19 07:30 VLDL Cholesterol 21.0 mg/dL (10-31) 11/14/19 07:30 HDL Cholesterol 24 mg/dL (>40) L 11/14/19 07:30 TSH 1.66 uIU/mL (0.47-4.68) 11/13/19 10:11 11/13/19 11/13/19 11/13/19 10:11 13:21 19:42 Troponin I 0.032 0.027 0.031 NT-Pro-B Natriuret Pep 8320 H 11/14/19 11/14/19 11/16/19 01:48 16:44 05:48 Troponin I 0.043 NT-Pro-B Natriuret Pep 08460 H 74867 H Current Medication List Generic Name Dose Route Start Last Admin Trade Name Freq PRN Reason Stop Dose Admin Acetaminophen 975 mg 11/13/19 16:48 Tylenol 325 Mg Tablet PO 12/13/19 16:47 QAMP PRN FOR PAIN Albuterol 2 puff 11/13/19 18:00 11/16/19 06:06 Proair Hfa Inhalation Aerosol 8.5 Gm Mdi IH 12/13/19 17:59 Not Given Q6 [facility] Albuterol/Ipratropium 3 ml 11/13/19 20:00 11/15/19 21:16 Duoneb 3 Ml Ampul NEB 12/13/19 19:59 Not Given RTQ6 [facility] Apixaban 2.5 mg 11/15/19 11:00 11/15/19 18:15 Eliquis 2.5 Mg Tablet PO 12/15/19 10:59 Not Given BID [facility] Ascorbic Acid 500 mg 11/14/19 08:00 11/15/19 13:50 Vitamin C 500 Mg Tablet PO 12/14/19 07:59 Not Given QAM [facility] Aspirin 81 mg 11/14/19 12:00 11/15/19 13:56 Ecotrin 81 Mg Ec Tablet PO 12/14/19 11:59 Not Given NOON [facility] Atorvastatin Calcium 40 mg 11/13/19 22:00 11/15/19 21:17 Lipitor 40 Mg Tablet PO 12/13/19 21:59 Not Given QHS [facility] Finasteride 5 mg 11/14/19 12:00 11/15/19 13:57 Proscar 5 Mg Tablet PO 12/14/19 11:59 Not Given NOON [facility] Fluticasone/Vilanterol 1 inh 11/14/19 10:00 11/15/19 13:52 Breo 200-25 Mcg Ellipta 14 Dose/Dpi IH 12/14/19 09:59 Not Given DAILY [facility] Latanoprost 1 drop 11/13/19 22:00 11/15/19 21:18 Xalatan 0.005% Oph Soln 2.5 Ml OU 12/13/19 21:59 1 drop QHS [facility] Administration Lorazepam 2 mg 11/13/19 22:51 11/14/19 05:27 Ativan Inj 2 Mg/1 Ml Vial IV 11/20/19 22:50 2 mg Q4HP PRN Administration AGITATION Mesalamine 800 mg 11/13/19 22:00 11/16/19 06:07 Asacol Sr 400 Mg Capsule PO 12/13/19 21:59 Not Given Q8 [facility] Metoprolol Succinate 25 mg 11/14/19 12:00 11/15/19 13:57 Toprol Xl 25 Mg Tab.Sr PO 12/14/19 11:59 Not Given NOON [facility] Patient Own Medication 1 puff 11/13/19 16:43 Tiotropium [place] [Spiriva Respimat] IH 12/13/19 16:42 .ASDIR PRN SOB Patient Own Medication 1 drop 11/13/19 16:43 Carboxymethylcellulose Sodium [Refresh Tears] OU 12/13/19 16:42 .ASDIR PRN DRY EYE(S) Quetiapine Fumarate 25 mg 11/15/19 22:00 11/15/19 21:17 Seroquel 25 Mg Tablet PO 12/15/19 21:59 Not Given QHS [facility] Timolol Maleate 1 drop 11/14/19 10:00 11/15/19 10:02 Timoptic 0.5% Oph Soln 5 Ml OU 12/14/19 09:59 1 drop DAILY [facility] Administration Discontinued Medications Generic Name Dose Route Start Last Admin Trade Name Freq PRN Reason Stop Dose Admin Aspirin 324 mg 11/13/19 13:20 11/13/19 14:04 Aspirin 81 Mg Chewable Tablet PO 11/13/19 13:21 324 mg NOW ONE Administration Furosemide 40 mg 11/13/19 11:46 11/13/19 12:20 Lasix Inj/Pf 40 Mg/4 Ml Sdv IV 11/13/19 11:47 40 mg NOW ONE Administration Furosemide 40 mg 11/13/19 18:00 11/15/19 18:18 Lasix Inj/Pf 40 Mg/4 Ml Sdv IV 12/13/19 17:59 40 mg Q12A [facility] Administration Haloperidol Lactate Confirm 11/13/19 18:57 11/13/19 21:01 Haldol 5 Mg/Ml Inj 1 Ml Vial Administered 11/13/19 18:58 Not Given Dose 5 mg .ROUTE .STK-MED ONE Haloperidol Lactate 2 mg 11/13/19 19:45 11/13/19 21:01 Haldol 5 Mg/Ml Inj 1 Ml Vial IV 11/13/19 19:46 2 mg NOW ONE Administration Potassium Chloride/Water 20 meq in 50 mls @ 25 mls/hr 11/13/19 11:48 11/13/19 12:46 Potassium Chloride Jb 20 Meq/50 Ml IV 11/13/19 13:47 25 mls/hr NOW ONE Administration Lorazepam Confirm 11/13/19 22:17 11/14/19 05:07 Ativan Inj 2 Mg/1 Ml Vial Administered 11/13/19 22:18 Not Given Dose 2 mg .ROUTE .STK-MED ONE Nitroglycerin 0.5 gm 11/13/19 11:47 11/13/19 12:20 Nitrol 2% Ointment 1gm Packet TP 11/13/19 11:48 0.5 gm NOW ONE Administration Potassium Chloride 40 meq 11/13/19 11:49 11/13/19 12:50 Klor-Con 10 Meq Tablet Er PO 11/13/19 11:50 40 meq NOW ONE Administration Assessment & Plan - Diagnosis (1) Heart failure with preserved ejection fraction, borderline, class III Plan: He is now -3.8 L in his fluid balance with his creatinine at baseline and appears to be euvolemic. His lower extremity edema is resolved. Unfortunately his mental status is not back to his baseline and he has not been able to eat or drink anything due to problems swallowing and choking and just small sips of fluids. It is unclear whether this is still residual from the Ativan he received versus an neurological event. Given that he appears to be euvolemic and that he is not taking anything by mouth I will stop his IV Lasix and will continue to watch his mental status, renal function and fluid status. His most recent echocardiogram in the outpatient setting in September 2019 demonstrated preserved ejection fraction with mild RV systolic dysfunction and severe pulmonary hypertension which has remained stable from a prior echocardiogram in July 2018. Recommendations: -Discontinue Lasix IV. -Replace electrolytes. -Restrict fluid intake to 1500 cc daily. -Low sodium diet, less than 1500 mg daily. -Strict intake and output. -Daily weights. -Cardiac telemetry. (2) Chronic kidney disease (CKD), stage IV (severe) Plan: His creatinine this morning continues to be at baseline. Recommendations: -Discontinue Lasix IV. -Replace electrolytes. -Check BMP tomorrow. (3) Elevated troponin Is this a current diagnosis for this admission?: Yes Plan: His troponin is detectable however still below the cutoff for acute injury. This is likely secondary to his heart failure exacerbation and not from an ACS. Recommendations: -Continue with clinical follow-up. -Continue with outpatient medications except Lasix. (4) Permanent atrial fibrillation Is this a current diagnosis for this admission?: Yes Plan: His heart rate is well controlled. Unfortunately he has not received any of his Eliquis as he is not taking anything p.o. as described above. He is at a very high risk of stroke from his atrial fibrillation and overall comorbidities. His telemetry demonstrates atrial fibrillation with a controlled heart rate and now sustained dysrhythmias. Recommendations: -Full anticoagulation with weight-based Lovenox (1 mg/kg subcutaneously twice daily) until the patient is able to tolerate p.o.'s. (5) Change in mental status Qualifiers: Altered mental status type: unspecified Qualified Code(s): R41.82 - Altered mental status, unspecified Is this a current diagnosis for this admission?: Yes Plan: The patient was noted to have some mental status changes after he received some Ativan for agitation however he has not received any psychoactive medications in the last 48 hours. This morning he looks a little bit better but has not been able to tolerate any p.o. intake due to problems swallowing per the nursing report. The differential diagnosis for his change in mental status is ex tensive. I will defer further work-up to the hospitalist.
--- NOTE | 2019-11-16 11:28 | RADIOLOGY REPORT (SQ) ---
EXAM DESCRIPTION: COOKIE SWALLOW IMAGES COMPLETED DATE/TIME: 11/16/2019 11:11 am REASON FOR STUDY: coughing at bedside dementia, increased dysphagia following sedation COMPARISON: None. TECHNIQUE: Videofluoroscopic swallowing examination was performed in conjunction with speech patholo gy. Videofluoroscopic imaging was obtained and reviewed and these are the findings: RADIATION DOSE: 4 minutes 49 seconds of fluoroscopy was used. 1 images saved to PACS. LIMITATIONS: None FINDINGS: The patient was brought into the fluoro room and placed upright on a modified barium swall ow chair. The patient was then given multiple consistencies mixed with barium to swallow under live fluoroscopic video guidance. According to the Speech Pathologist there was laryngeal penetration and aspiration of thin liquids. There is aspiration of post swallow residuals throughout the exam. Very weak and uncoordinated swallow IMPRESSION: LARYNGEAL PENETRATION AND ASPIRATION ABOVE. PLEASE SEE SPEECH PATHOLOGIST REPORT FOR OTHER FINDINGS AND RECOMMENDATIONS. COMMENT: Quality ID [id number]: Final reports for procedures using fluoroscopy that document radiation exp osure indices, or exposure time and number of fluorographic images (if radiation exposure indices are not available) TECHNICAL DOCUMENTATION: JOB ID: [id number] 2010 [employer]- All Rights Reserved Reading location - IP/workstation name: [email or web address]
--- NOTE | 2019-11-16 12:11 | ST Inp Modified Barium Swallow ---
Medical Diagnosis - Medical Diagnoses Medical Diagnosis Description & ICD-10 Code(s): change in mental status, dysphagia ST Inpatient MBS - General Date: 11/16/19 Date of Onset: 11/16/19 - History -: Medical - per EMR: patient admitted 11/12 with shortness of breath. Prior medical history includes CAD s/p CABG, HTN, CHF, pulmonary HTN, dyslipidemia, dementia. Patient was previously sedated due to behavioral outbursts, is now more alert. Nursing noted on 11/15 that the patient was having difficulty with swallowing, noted to be "choking on small sips". During bedside clinical assessment with speech therapist, patient demonstrated immediate cough with ice chip trials, as well as delayed cough with apple sauce trials. MBSS then recommended. Medications: Medications Reviewed Allergies: Refer to medical record - Subjective Current Nutritional Means: PO Current PO Diet: Regular Current Symptoms: Coughing Pain: Patient reports, 0/5 - Objective Assessment: Upright, Left Lateral - Food Trials Food Trials Used: Thin liquids, Honey-thickened liquids, Parral thick liquids, Pureed The Patient: fed by ST - Assessment Labial Function: Impaired Lingual Function: Impaired Dentition: Edentulous Velo-Pharyngeal Function: Unremarkable Laryngeal Function: no volitional swallow - Pharyngeal Stage Initiation of Pharyngeal Stage: Delayed - bolus in valleculae for up to 5 seconds prior to swallow initiation Decreased Laryngeal Elevation: Yes Reduced Pressure Generation: Yes Reduced Tongue Base Retraction: Yes Pre-Swallowing Pooling in Valleculae: Significant Pre-Swallowing Pooling in Pyriforms: Moderate Reduced Thyro-Hyiod Approximation: Yes Reduced Epiglottic Excursion: No Multiple Swallows With: Ineffective Clearance Post Swallow Residuals in Valleculae: Significant Post Swallow Residuals in Pyriforms: Moderate Post Swallow Residuals: throughout pharynx Pahryngeal Stage Comments: Overall swallow is severely impaired. Patient demonstrated poor oral control of bolus with significant oral residue and holding. Patient also had very delayed swallow reflex, which resulted in aspiration of thin liquids on the swallow. Swallow itself was very weak, characterized by reduced laryngeal elevation, and reduced pharyngeal constriction, resulting in significant residuals in the pharynx after the swallow. Residue was present for all trials, and residue increased as texture increased. Residue was seen to be aspirated after the swallow with all textures. - Impression/Summary Laryngeal Penetration: Yes Tracheal Aspiration: yes Patient Presents With: Oral stage dysphagia, Pharyngeal stage dysph., Severe Risk of Aspiration: Severe - Recommendations NPO: yes Other Recommendations: Plan to follow up next week to see if patient is appropriate for dysphagia treatment. - Time Total Time: 30 Total Timed Minutes: 30
--- NOTE | 2019-11-16 12:34 | PDOC PROGRESS REPORT ---
Subjective Progress Note for:: 11/16/19 Subjective:: The patient is somewhat somnolent. They did call the patient's and discussed his condition and plans for 20 minutes. Because of his dysphasia he has not had anything significant to eat or drink since Tuesday. His somnolence may be due to weakness. If this does not improve with tube feeds then we will likely assess for stroke. Reason For Visit: CHF EXACERBATION Physical Exam Vital Signs: Temp Pulse Resp BP Pulse Ox 98.4 F 98 28 H 100/84 98 11/15/19 20:15 11/16/19 07:00 11/15/19 20:15 11/15/19 20:15 11/16/19 00:45 Intake & Output 11/15/19 11/16/19 11/17/19 06:59 06:59 06:59 Intake Total 50 0 Output Total 550 2475 Balance -500 -2475 Weight 94.8 kg 94.1 kg General appearance: PRESENT: no acute distress, cooperative - He was very somnolent but attempted to answer questions., well-developed Head exam: PRESENT: atraumatic, normocephalic Eye exam: PRESENT: conjunctiva pink Ear exam: PRESENT: normal external ear exam. ABSENT: bleeding, drainage Mouth exam: PRESENT: dry mucosa, tongue midline Respiratory exam: PRESENT: clear to auscultation jonathan - anteriorly, symmetrical, unlabored. ABSENT: prolonged expiratory phas, rales, rhonchi, tachypnea, wheezes Cardiovascular exam: PRESENT: irregular rhythm. ABSENT: diastolic murmur, systolic murmur GI/Abdominal exam: PRESENT: normal bowel sounds, soft. ABSENT: distended, guarding, tenderness Rectal exam: PRESENT: deferred Gentrourinary exam: PRESENT: indwelling catheter Extremities exam: PRESENT: +1 edema - Bilaterally Musculoskeletal exam: ABSENT: ambulatory - 2-week at this time Neurological exam: PRESENT: awake, oriented to person - Response was 9 but unable to further assess, other - somnolent. ABSENT: alert - Somnolent as noted above Psychiatric exam: PRESENT: flat affect. ABSENT: agitated, anxious Focused psych exam: ABSENT: delusional, paranoid, restlessness Skin exam: PRESENT: dry, normal color, warm. ABSENT: cyanosis, rash Results Laboratory Results: 11/16/19 05:48 11/16/19 05:48 11/16/19 11/16/19 05:48 05:48 WBC 8.2 RBC 4.46 Hgb 14.2 Hct 42.0 MCV 94 MCH 32.0 MCHC 33.9 RDW 15.6 H Plt Count 138 L Sodium 144.7 Potassium 3.6 Chloride 104 Carbon Dioxide 28 Anion Gap 13 BUN 31 H Creatinine 1.67 H Est GFR ( Amer) 48 L Glucose 126 H Calcium 9.6 11/13/19 11/13/19 11/13/19 10:11 13:21 19:42 Troponin I 0.032 0.027 0.031 NT-Pro-B Natriuret Pep 8320 H 11/14/19 11/14/19 11/16/19 01:48 16:44 05:48 Troponin I 0.043 NT-Pro-B Natriuret Pep 64372 H 95390 H Impressions: Chest X-Ray 11/14/19 06:00 IMPRESSION: Unchanged radiographic appearance of the chest. Modified Barium Swallow 11/16/19 00:00 IMPRESSION: LARYNGEAL PENETRATION AND ASPIRATION ABOVE. PLEASE SEE SPEECH PATHOLOGIST REPORT FOR OTHER FINDINGS AND RECOMMENDATIONS. Assessment and Plan - Diagnosis (1) Heart failure with preserved ejection fraction, borderline, class III Is this a current diagnosis for this admission?: Yes Plan: Acute on chronic diastolic CHF Normal EF on echocardiogram September 2019 Continue to monitor on telemetry. Continue IV Lasix Daily weight Strict I&O 11/16/2019 The patient has had a net negative fluid balance of over [address] Ortiz has stopped since furosemide. Will monitor his intake and output. He is also not been able to take in fluids by mouth to any significant degree. We will be starting tube feeds and he will receive some free water flushes. We will continue to monitor his intake and output as well as monitor extremities for any edema. (2) Chronic kidney disease (CKD), stage IV (severe) Is this a current diagnosis for this admission?: Yes Plan: Continue to monitor renal function 11/16/2019 It appears that the patient's renal function is at baseline. This is based on outside laboratory studies obtained by Dr. Ortiz. We will continue to monitor intake and output. He has had extremely limited oral intake of fluids. He is not exhibiting low blood pressure. We will continue to monitor his renal function as we start tube feeds and free water flushes. (3) Longstanding persistent atrial fibrillation Is this a current diagnosis for this admission?: Yes Plan: 11/16/2019 I have initiated therapeutic Lovenox since he is not able to take his oral anticoagulant. In addition he has not been able to take his oral metoprolol. I will initiate as needed IV dosing and if it is consistent then utilize scheduled IV doses of metoprolol to control his heart rate. (4) Elevated troponin Is this a current diagnosis for this admission?: Yes Plan: Flat. No chest pain. Cardiology involved. 11/16/2019 Despite the patient's history of coronary disease his troponins are more likely elevated certainly a combination of renal function strain. No additional troponins at this time. Can reorder if there are any concerns about acute coronary syndrome. (5) Acute delirium Is this a current diagnosis for this admission?: Yes Plan: 11/16/2019 Multifactorial. The patient has not eaten in 45 days. There is no obvious evidence of infection. He does have decompensated heart failure and chronic kidney disease. This may also be due to medication. I did have a long discussion with patient's . He does have a history of mental illness. She was unclear but it sounds like a possible posttraumatic stress disorder with a history of agitation. Since he is not able to take oral medications and has a dobhoff feeding tube I have ordered Zyprexa Zydis 5 mg at bedtime. (6) Dyslipidemia Is this a current diagnosis for this admission?: Yes Plan: Continue statin treatment 11/16/2019 Hold statin due to dysphagia (7) Dysphagia Qualifiers: Dysphagia type: oropharyngeal phase Qualified Code(s): R13.12 - Dysphagia, oropharyngeal phase Is this a current diagnosis for this admission?: Yes Plan: 11/16/2019 Severe dysphagia. The patient will be n.p.o. and feeding tube will be placed. A dietitian consult has been ordered. (8) CAD (coronary artery disease) Qualifiers: Coronary Disease-Associated Artery/Lesion type: [place] artery [place] vs. transplanted heart: [place] heart Associated angina: without angina Qualified Code(s): I25.10 - Atherosclerotic heart disease of [place] coronary artery without angina pectoris Is this a current diagnosis for this admission?: Yes Plan: Continue current cardiac medications 11/16/2019 Due to dysphasia oral metoprolol is on hold. He was on aspirin therapy but this is on hold as well. He will be on Lovenox therapeutic dosing for his A. fib. (9) Esophageal stricture Is this a current diagnosis for this admission?: Yes Plan: 11/16/2019 Per his he has a history of requiring esophageal dilatation. She mentioned narrowing so he likely has an esophageal stricture. The etiology of this is unknown but possibly reflux. As he is n.p.o. this is a nonissue at this time. (10) Hypertension Qualifiers: Hypertension type: essential hypertension Qualified Code(s): I10 - Essential (primary) hypertension Is this a current diagnosis for this admission?: Yes Plan: 11/16/2019 The patient's blood pressure has been elevated. It is difficult to determine if this is due to the inability to administer his metoprolol, his acute illness or periods of agitation. Intravenous metoprolol is now available on an as-needed basis. If it is a consistent need we will make it scheduled. In addition he was on IV Lasix and this is been discontinued. He may need low-dose diuretic therapy for hypertension. (11) Chronic obstructive pulmonary disease Qualifiers: COPD type: unspecified COPD Qualified Code(s): J44.9 - Chronic obstructive pulmonary disease, unspecified Is this a current diagnosis for this admission?: Yes Plan: 11/16/2019 Although there is no history of COPD by documentation the patient is a very poor historian and is extremely weak on admission. His home medications do include inhalers typically used for COPD. He does have increased oxygen requirements as well. Because I do not believe he is able to adequately inhale Breo Ellipta or Spiriva he will get scheduled DuoNebs and budesonide. His respiratory failure is also likely due to his heart failure. (12) Acute and chronic respiratory failure with hypoxia Is this a current diagnosis for this admission?: Yes Plan: 11/16/2019 Most likely due to combination of his heart failure and COPD. See treatments for these 2 entities above. We will try and taper him to the lowest oxygen requirements. (13) Pulmonary hypertension Is this a current diagnosis for this admission?: Yes Plan: 11/16/2019 This was determined with an outpatient echocardiogram at Dr. Ortiz's office. He describes hypertension is severe. Continue current management as above. - Time Time Spent with patient: 35 or more minutes Medications reviewed and adjusted accordingly: Yes - Multiple changes due to dys phagia
[2019-11-16] MEDS ORDERED: DEXTROSE 40% GEL 15 GM TUBE PO PRN ×2 (12:54)
[2019-11-16] MEDS ORDERED: GLUCAGON,HUMAN RECOMB 1 MG INJ SUBCUT PRN (12:54)
[2019-11-16] MEDS ORDERED: DEXTROSE 50%-WATER 25 GM/50 ML DISP.SYRIN IV PRN ×2 (12:54)
[2019-11-16] MEDS ORDERED: HALOPERIDOL LACTATE INJ 5 MG/1 ML VIAL ONE (13:46)
[2019-11-16] MEDS ORDERED: HALOPERIDOL LACTATE INJ 5 MG/1 ML VIAL IV ONE (14:30)
[2019-11-16] MEDS ORDERED: METOPROLOL TARTRATE PF/INJ 5 MG/5 ML SDV IV PRN (15:06)
--- NOTE | 2019-11-16 15:07 | RADIOLOGY REPORT (SQ) ---
EXAM DESCRIPTION: INTRO LONG GI TUBE (MILLAB); INTRO/GI TUBE W/FLUORO IMAGES COMPLETED DATE/TIME: 11/16/2019 2:53 pm REASON FOR STUDY: SEVERE DYSPHAGIA; severe dysphagia COMPARISON: None. TECHNIQUE: Live fluoroscopic guidance. RADIATION DOSE: 6 minutes 19 seconds of fluoroscopy was used. 1 images saved to PACS. LIMITATIONS: None. FINDINGS: The patient was brought to the fluoroscopy room and placed supine on the fluoroscopy table . A NJ-tube was advanced through the left nostril and into the stomach. Was unable to advance the ca theter beyond the fundus of the stomach. The loop of catheter was left within the lumen of the stoma ch. Approximately 10 mL Omnipaque 300 was injected through the catheter to confirm placement. A fluo roscopic spot film was saved to PACs demonstrating catheter tip within the stomach. Delayed images o f the abdomen can be obtained to see if there is further progression due to peristalsis. IMPRESSION: Successful fluoroscopic guided placement of a Dobhoff tube into the lumen of the stomach . COMMENT: Quality ID 145: Final reports for procedures using fluoroscopy that document radiation exp osure indices, or exposure time and number of fluorographic images (if radiation exposure indices are not available) TECHNICAL DOCUMENTATION: JOBD ID: [id number] 2010 [employer]- All Rights Reserved Reading location - IP/workstation name: [email or web address] [id number]
--- NOTE | 2019-11-16 15:07 | RADIOLOGY REPORT (SQ) ---
EXAM DESCRIPTION: INTRO LONG GI TUBE (MILLAB); INTRO/GI TUBE W/FLUORO IMAGES COMPLETED DATE/TIME: 11/16/2019 2:53 pm REASON FOR STUDY: SEVERE DYSPHAGIA; severe dysphagia COMPARISON: None. TECHNIQUE: Live fluoroscopic guidance. RADIATION DOSE: 6 minutes 19 seconds of fluoroscopy was used. 1 images saved to PACS. LIMITATIONS: None. FINDINGS: The patient was brought to the fluoroscopy room and placed supine on the fluoroscopy table . A NJ-tube was advanced through the left nostril and into the stomach. Was unable to advance the ca theter beyond the fundus of the stomach. The loop of catheter was left within the lumen of the stoma ch. Approximately 10 mL Omnipaque 300 was injected through the catheter to confirm placement. A fluo roscopic spot film was saved to PACs demonstrating catheter tip within the stomach. Delayed images o f the abdomen can be obtained to see if there is further progression due to peristalsis. IMPRESSION: Successful fluoroscopic guided placement of a Dobhoff tube into the lumen of the stomach . COMMENT: Quality ID 145: Final reports for procedures using fluoroscopy that document radiation exp osure indices, or exposure time and number of fluorographic images (if radiation exposure indices are not available) TECHNICAL DOCUMENTATION: JOBD ID: [id number] 2010 [employer]- All Rights Reserved Reading location - IP/workstation name: [email or web address] [id number]
[2019-11-16] MEDS: TIMOLOL MALEATE 0.5% OPH SOLN 5 ML OU SCH (15:16)
[2019-11-16] MEDS: FINASTERIDE 5 MG TABLET PO SCH (15:17)
[2019-11-16] MEDS: BUDESONIDE NEB 0.5 MG/2 ML AMPUL NEB SCH (20:16)
[2019-11-16] MEDS ORDERED: OLANZAPINE 5 MG TAB.RAPDIS PO SCH (22:00)
[2019-11-16] MEDS: ENOXAPARIN SODIUM INJ 100 MG/1 ML DISP.SYRIN SUBCUT SCH (22:15)
[2019-11-16] MEDS: LATANOPROST 0.005% OPH SOLN 2.5 ML OU SCH (22:30)
[2019-11-17 06:45] LABS: ABSOLUTE EOSINOPHILS # (AUTO) 0.2 10^3/uL (0.0-0.6); ABSOLUTE LYMPHOCYTES (AUTO) 0.5 10^3/uL (0.5-4.7); ABSOLUTE MONOCYTES (AUTO) 0.8 10^3/uL (0.1-1.4); ABSOLUTE NEUT (AUTO) 5.8 10^3/uL (1.7-8.2); BASOPHILS % (AUTO) 0.2 % (0-2); EOSINOPHILS % (AUTO) 2.3 % (0-6); HEMATOCRIT 40.6 % (37.9-51.0); HEMOGLOBIN 13.6 g/dL (13.5-17.0); LYMPHOCYTES % (AUTO) 6.5 % (13-45); MEAN CORPUSCULAR HEMOGLOBIN 31.8 pg (27.0-33.4); MEAN CORPUSCULAR HGB CONC 33.6 g/dL (32.0-36.0); MEAN CORPUSCULAR VOLUME 95 fl (80-97); MONOCYTES % (AUTO) 10.7 % (3-13); PLATELET COUNT 118 10^3/uL (150-450); RED BLOOD COUNT 4.28 10^6/uL (4.35-5.55); RED CELL DISTRIBUTION WIDTH 15.8 % (11.5-14.0); SEGMENTED NEUTROPHILS % (AUTO) 80.3 % (42-78); TOTAL CELLS COUNTED % (AUTO) 100 %; WHITE BLOOD COUNT 7.2 10^3/uL (4.0-10.5)
[2019-11-17 07:05] LABS: ALBUMIN 3.6 g/dL (3.5-5.0); ANION GAP 11 (5-19); BLOOD UREA NITROGEN 29 mg/dL (7-20); CALCIUM 9.3 mg/dL (8.4-10.2); CARBON DIOXIDE 27 mmol/L (22-30); CHLORIDE 108 mmol/L (98-107); GLUCOSE 103 mg/dL (75-110); POTASSIUM 3.3 mmol/L (3.6-5.0)
--- NOTE | 2019-11-17 07:42 | PDOC PROGRESS REPORT ---
Subjective Progress Note for:: 11/17/19 Subjective:: SANDEE FERNANDES is a 84 year old male, retired [employer] with history of coronary artery disease status post 4 vessel CABG in 2001 and stent in 2012 and left main stenting in December 2016 with a 3.5 mm x 12 mm Xience VIC as well as stenting of the left circumflex with a 3.5 mm x 23 mm Xience VIC, hypertension, heart failure, pulmonary hypertension, hyperlipidemia who is consulted to our service for evaluation and further treatment of heart failure. His echocardiogram in July 2018 was most remarkable for severe pulmonary hypertension, preserved ejection fraction and stable aortic root aneurysm at 3.9 cm. I last evaluated him in my office on 09/20/2019 at which time he was found to be mildly fluid overloaded therefore his Lasix was increased but unfortunately he was not able to follow-up as scheduled 2 weeks later. His states that he had been doing well until approximately 1 to 2 weeks ago when he began to notice lower extremity edema associated with shortness of breath which progressed to the point he just spent the last 2 or 3 days in bed and unable to walk without assistance. He is evaluated in the em ergency room where he is in no acute distress in his bed. He specifically denies chest pain, palpitations, syncope, presyncope as well as shortness of breath. 11/17/2019: The patient had an uneventful night from the cardiovascular standpoint. He does continue to be agitated at times. He underwent placement of Dobbhoff tube yesterday without complications and is awaiting nutrition consult to start tube feeds. His mental status this morning is essentially unchanged from yesterday, he does open his eyes however is unable to answer questions appropriately. He is on soft restraints due to his agitation and attempts at pulling out his lines. His fluid balance is -4.270 L. I discontinued his IV Lasix yesterday as he has not had any p.o. intake and he does not have any more evidence of heart failure. Physical exam on 11/13/2019: GENERAL: Sleeping, responsive to loud commands but cannot engage in a conversation. Not in acute distress. Disheveled. In soft restraints. HEENT: Normocephalic, atraumatic. Pupils equal. Sclerae anicteric. Oropharynx moist. NECK: No JVD. No carotid bruits. LUNGS: Decreased breath sounds bilaterally. Normal respiratory effort without the use of accessory muscles or intercostal retractions. CARDIOVASCULAR: Irregularly irregular rate and rhythm, normal S1 and S2 without rubs, or gallops. 2/6 crescendo decrescendo murmur at the right upper sternal b order. PMI not displaced. EXTREMITIES: No edema bilaterally, no cyanosis up to the thighs, no clubbing. +2 pulses femoral and pedal pulses bilaterally. SKIN: No lesions or rashes. MUSCULOSKELETAL: No chest tenderness to palpation. NEUROLOGIC: Nonfocal. No gross sensory or motor deficits bilateral upper or lower extremities. Cardiac studies: Echocardiogram on 09/25/2019: -LV is normal in size. -Mild concentric LVH. -Normal ejection fraction. -Diastolic dysfunction is indeterminate in the presence of atrial fibrillation. -Flattened septum consistent with RV pressure/volume overload. -Moderate RVE with mildly reduced systolic function. -Moderate biatrial enlargement. -Mild MAC without stenosis. -Mild to moderate MR, severe TR, mild AI, mild to moderate PI. -Severely elevated pulmonary pressures and estimated between 75 and 80 mmHg. -Borderline dilated aortic root at 3.7 cm. Echocardiogram on 08/02/18: -LV is normal in size. -Mild concentric LVH. -Ejection fraction is normal. -RV pressure/volume overload is present. -Mild to moderate RVE with moderately decreased systolic function. -Severe biatrial enlargement. -Mild MAC without stenosis -Mild to moderate MR, moderate to severe TR, mild AI, mild PI. -Severe pulmonary hypertension. -Mildly dilated aortic root at 3.9 cm. Echocardiogram on 07/29/17: -The patient was in slow atrial fibrillation. -The left ventricle is normal in size. -Mild LVH. -Grossly normal EF. -Flattened septum consistent with RV pressure overload. -Moderate to severe RVE with borderline reduced systolic function. -Severe LAE, moderate JEAN. -Mild MAC without stenosis. -Moderate MR, severe TR, mild to moderate AI, mild PI. -Mildly sclerotic aortic valve without stenosis. -Severe pulmonary hypertension with pressures estimated at 82 mmHg. -Mild aortic root dilatation at 4.1 cm. -Mildly dilated proximal ascending aorta at 2.8 cm. [facility] on 12/14 17: -Left main: No disease. -LAD: Heavily calcified. Proximally occluded, fills distally via SVG. -Diagonal: fills distally via OGDEN graft. -Left circumflex: Dominant vessel. 70% proximal stenosis. Totally occluded distally. -OM1: Proximally occluded. fills via SVG. -PDA: fills via SVG. -SVG to the PDA: Patent. -SVG to 2 diagonals: Patent. -SVG to OM1: Patent. -OGDEN: Patent. Reason For Visit: CHF EXACERBATION Physical Exam Vital Signs: Temp Pulse Resp BP Pulse Ox 97.5 F 115 H 20 148/52 H 94 11/17/19 03:09 11/17/19 03:09 11/17/19 03:09 11/17/19 03:09 11/17/19 03:09 Intake & Output 11/15/19 11/16/19 11/17/19 06:59 06:59 06:59 Intake Total 50 0 Output Total 550 0285 800 Balance -500 -7527 -800 Weight 94.8 kg 94.1 kg 94.1 kg Results Laboratory Results: 11/16/19 05:48 11/16/19 05:48 11/16/19 05:48 Sodium 144.7 Potassium 3.6 Chloride 104 Carbon Dioxide 28 Anion Gap 13 BUN 31 H Creatinine 1.67 H Est GFR ( Amer) 48 L Glucose 126 H Calcium 9.6 11/13/19 11/13/19 11/13/19 10:11 13:21 19:42 Troponin I 0.032 0.027 0.031 NT-Pro-B Natriuret Pep 8320 H 11/14/19 11/14/19 11/16/19 01:48 16:44 05:48 Troponin I 0.043 NT-Pro-B Natriuret Pep 88823 H 22493 H Impressions: Chest X-Ray 11/14/19 06:00 IMPRESSION: Unchanged radiographic appearance of the chest. Gastrostomy Tube Placement 11/16/19 00:00 IMPRESSION: Successful fluoroscopic guided placement of a Dobhoff tube into the lumen of the stomach. Guidance Fluoroscopy 11/16/19 00:00 IMPRESSION: Successful fluoroscopic guided placement of a Dobhoff tube into the lumen of the stomach. Modified Barium Swallow 11/16/19 00:00 IMPRESSION: LARYNGEAL PENETRATION AND ASPIRATION ABOVE. PLEASE SEE SPEECH PATHOLOGIST REPORT FOR OTHER FINDINGS AND RECOMMENDATIONS. 11/16/19 05:48 11/16/19 05:48 MCV 94 fl (80-97) 11/16/19 05:48 MCH 32.0 pg (27.0-33.4) 11/16/19 05:48 MCHC 33.9 g/dL (32.0-36.0) 11/16/19 05:48 RDW 15.6 % (11.5-14.0) H 11/16/19 05:48 Seg Neutrophils % 77.3 % (42-78) 11/14/19 07:30 Carbonic Acid 0.98 mmol/L (1.05-1.35) L 11/14/19 15:35 HCO3/H2CO3 Ratio 22:1 11/14/19 15:35 ABG pH 7.45 (7.35-7.45) 11/14/19 15:35 ABG pCO2 32.5 mmHg (35-45) L 11/14/19 15:35 ABG pO2 68.4 mmHg (80-100) L 11/14/19 15:35 ABG HCO3 21.9 mmol/L (20-24) 11/14/19 15:35 ABG O2 Saturation 94.6 % (94-98) 11/14/19 15:35 ABG Base Excess -1.3 mmol/L 11/14/19 15:35 FiO2 ROOM TEMP 11/14/19 15:35 Chloride 104 mmol/L (98-107) 11/16/19 05:48 Carbon Dioxide 28 mmol/L (22-30) 11/16/19 05:48 Anion Gap 13 (5-19) 11/16/19 05:48 Est GFR ( Amer) 48 (>60) L 11/16/19 05:48 Glucose 126 mg/dL (75-110) H 11/16/19 05:48 Lactic Acid 2.4 mmol/L (0.7-2.1) H 11/13/19 19:08 Calcium 9.6 mg/dL (8.4-10.2) 11/16/19 05:48 Magnesium 2.2 mg/dL (1.6-2.3) 11/14/19 07:30 Total Bilirubin 2.2 mg/dL (0.2-1.3) H 11/14/19 07:30 AST 33 U/L (17-59) 11/14/19 07:30 Alkaline Phosphatase 129 U/L (38-126) H 11/14/19 07:30 Total Protein 6.7 g/dL (6.3-8.2) 11/14/19 07:30 Albumin 3.6 g/dL (3.5-5.0) 11/14/19 07:30 Triglycerides 104 mg/dL (<150) 11/14/19 07:30 Cholesterol 82.02 mg/dL (0-200) 11/14/19 07:30 LDL Cholesterol Direct 41 mg/dL (<100) 11/14/19 07:30 VLDL Cholesterol 21.0 mg/dL (10-31) 11/14/19 07:30 HDL Cholesterol 24 mg/dL (>40) L 11/14/19 07:30 TSH 1.66 uIU/mL (0.47-4.68) 11/13/19 10:11 11/13/19 11/13/19 11/13/19 10:11 13:21 19:42 Troponin I 0.032 0.027 0.031 NT-Pro-B Natriuret Pep 8320 H 11/14/19 11/14/19 11/16/19 01:48 16:44 05:48 Troponin I 0.043 NT-Pro-B Natriuret Pep 60790 H 57729 H Current Medication List Generic Name Dose Route Start Last Admin Trade Name Freq PRN Reason Stop Dose Admin Acetaminophen 975 mg 11/13/19 16:48 Tylenol 325 Mg Tablet PO 12/13/19 16:47 QAMP PRN FOR PAIN Albuterol 2 puff 11/13/19 18:00 11/16/19 17:54 Proair Hfa Inhalation Aerosol 8.5 Gm Mdi IH 12/13/19 17:59 Not Given Q6 SAYRA Albuterol/Ipratropium 3 ml 11/13/19 20:00 11/15/19 21:16 Duoneb 3 Ml Ampul NEB 12/13/19 19:59 Not Given RTQ6 SAYRA Budesonide 0.5 mg 11/16/19 20:00 11/16/19 20:16 Pulmicort Neb 0.5 Mg/2 Ml Ampul NEB 12/16/19 19:59 0.5 mg RTQ12 SAYRA Administration Dextrose 12.5 gm 11/16/19 12:54 Dextrose Inj 50% Syringe (25 Gm/50 Ml) IV 12/16/19 12:53 PRN PRN FOR BG 50-69 IN ALERT PATIENT Protocol Dextrose 25 gm 11/16/19 12:54 Dextrose Inj 50% Syringe (25 Gm/50 Ml) IV 12/16/19 12:53 PRN PRN See Label Comments Protocol Enoxaparin Sodium 90 mg 11/16/19 22:00 11/16/19 22:15 Lovenox Inj 100 Mg/1 Ml Disp.Syrin SUBCUT 12/16/19 21:59 90 mg Q12 SAYRA Administration Finasteride 5 mg 11/14/19 12:00 11/16/19 15:17 Proscar 5 Mg Tablet PO 12/14/19 11:59 Not Given NOON SAYRA Glucagon 1 mg 11/16/19 12:54 Glucagen Inj 1 Mg Vial SUBCUT 12/16/19 12:53 PRN PRN Evaluate for BG < 70 Protocol Glucose 15 gm 11/16/19 12:54 Glutose 40% Gel 15 Gm Tube PO 12/16/19 12:53 PRN PRN For BG 50-69 in Alert Patient Protocol Glucose 30 gm 11/16/19 12:54 Glutose 40% Gel 15 Gm Tube PO 12/16/19 12:53 PRN PRN FOR BG < 50 IN ALERT PATIENT Protocol Latanoprost 1 drop 11/13/19 22:00 11/16/19 22:30 Xalatan 0.005% Oph Soln 2.5 Ml OU 12/13/19 21:59 Not Given QHS SAYRA Mesalamine 800 mg 11/13/19 22:00 11/16/19 15:18 Asacol Sr 400 Mg Capsule PO 12/13/19 21:59 Not Given Q8 SAYRA Metoprolol Tartrate 2.5 mg 11/16/19 15:06 Lopressor Inj/Pf 5 Mg/5 Ml Sdv IV 12/16/19 15:05 Q6HP PRN Give For Hr > 110 Olanzapine 5 mg 11/16/19 22:00 11/16/19 22:16 Zyprexa Zydis 5 Mg Odt Tablet PO 12/16/19 21:59 5 mg QHS SAYRA Administration Patient Own Medication 1 puff 11/13/19 16:43 Tiotropium [place] [Spiriva Respimat] IH 12/13/19 16:42 .ASDIR PRN SOB Patient Own Medication 1 drop 11/13/19 16:43 Carboxymethylcellulose Sodium [Refresh Tears] OU 12/13/19 16:42 .ASDIR PRN DRY EYE(S) Timolol Maleate 1 drop 11/14/19 10:00 11/16/19 15:16 Timoptic 0.5% Oph Soln 5 Ml OU 12/14/19 09:59 Not Given DAILY SAYRA Discontinued Medications Generic Name Dose Route Start Last Admin Trade Name Freq PRN Reason Stop Dose Admin Apixaban 2.5 mg 11/15/19 11:00 11/15/19 18:15 Eliquis 2.5 Mg Tablet PO 12/15/19 10:59 Not Given BID SAYRA Ascorbic Acid 500 mg 11/14/19 08:00 11/15/19 13:50 Vitamin C 500 Mg Tablet PO 12/14/19 07:59 Not Given [facility] Aspirin 324 mg 11/13/19 13:20 11/13/19 14:04 Aspirin 81 Mg Chewable Tablet PO 11/13/19 13:21 324 mg NOW ONE Administration Aspirin 81 mg 11/14/19 12:00 11/15/19 13:56 Ecotrin 81 Mg Ec Tablet PO 12/14/19 11:59 Not Given NOON [facility] Atorvastatin Calcium 40 mg 11/13/19 22:00 11/15/19 21:17 Lipitor 40 Mg Tablet PO 12/13/19 21:59 Not Given [facility] Fluticasone/Vilanterol 1 inh 11/14/19 10:00 11/15/19 13:52 Breo 200-25 Mcg Ellipta 14 Dose/Dpi IH 12/14/19 09:59 Not Given DAILY SAYRA Furosemide 40 mg 11/13/19 11:46 11/13/19 12:20 Lasix Inj/Pf 40 Mg/4 Ml Sdv IV 11/13/19 11:47 40 mg NOW ONE Administration Furosemide 40 mg 11/13/19 18:00 11/15/19 18:18 Lasix Inj/Pf 40 Mg/4 Ml Sdv IV 12/13/19 17:59 40 mg Q12A SAYRA Administration Haloperidol Lactate Confirm 11/13/19 18:57 11/13/19 21:01 Haldol 5 Mg/Ml Inj 1 Ml Vial Administered 11/13/19 18:58 Not Given Dose 5 mg .ROUTE .STK-MED ONE Haloperidol Lactate 2 mg 11/13/19 19:45 11/13/19 21:01 Haldol 5 Mg/Ml Inj 1 Ml Vial IV 11/13/19 19:46 2 mg NOW ONE Administration Haloperidol Lactate Confirm 11/16/19 13:46 11/16/19 15:18 Haldol 5 Mg/Ml Inj 1 Ml Vial Administered 11/16/19 13:47 Not Given Dose 5 mg .ROUTE .STK-MED ONE Haloperidol Lactate 5 mg 11/16/19 14:30 11/16/19 15:18 Haldol 5 Mg/Ml Inj 1 Ml Vial IV 11/16/19 14:31 5 mg NOW ONE Administration Potassium Chloride/Water 20 meq in 50 mls @ 25 mls/hr 11/13/19 11:48 11/13/19 12:46 Potassium Chloride Jb 20 Meq/50 Ml IV 11/13/19 13:47 25 mls/hr NOW ONE Administration Lorazepam Confirm 11/13/19 22:17 11/14/19 05:07 Ativan Inj 2 Mg/1 Ml Vial Administered 11/13/19 22:18 Not Given Dose 2 mg .ROUTE .STK-MED ONE Lorazepam 2 mg 11/13/19 22:51 11/14/19 05:27 Ativan Inj 2 Mg/1 Ml Vial IV 11/20/19 22:50 2 mg Q4HP PRN Administration AGITATION Metoprolol Succinate 25 mg 11/14/19 12:00 11/15/19 13:57 Toprol Xl 25 Mg Tab.Sr PO 12/14/19 11:59 Not Given NOON [facility] Nitroglycerin 0.5 gm 11/13/19 11:47 11/13/19 12:20 Nitrol 2% Ointment 1gm Packet TP 11/13/19 11:48 0.5 gm NOW ONE Administration Potassium Chloride 40 meq 11/13/19 11:49 11/13/19 12:50 Klor-Con 10 Meq Tablet Er PO 11/13/19 11:50 40 meq NOW ONE Administration Quetiapine Fumarate 25 mg 11/15/19 22:00 11/15/19 21:17 Seroquel 25 Mg Tablet PO 12/15/19 21:59 Not Given [facility] Assessment & Plan - Diagnosis (1) Heart failure with preserved ejection fraction, borderline, class III Is this a current diagnosis for this admission?: Yes Plan: I immensely appreciate Dr. Mclaughlin's expertise and diligence in the treatment of this complicated patient. The patient is now -4.270 in his fluid balance with his creatinine at baseline and appears to be euvolemic. His lower extremity edema is resolved. He now has a Dobbhoff tube and should be able to get his medications through the tube however these should be discussed with the [facility], [place], operated by [facility] pharmacist to ensure that his p.o. medications can be crushed. At this point we will continue to follow him clinically without new further recommendations. His most recent echocardiogram in the outpatient setting in September 2019 demonstrated preserved ejection fraction with mild RV systolic dysf unction and severe pulmonary hypertension which has remained stable from a prior echocardiogram in July 2018. Recommendations: -Continue with current medical management. -Replace electrolytes. -Restrict fluid intake to 1500 cc daily. -Low sodium diet, less than 1500 mg daily. -Strict intake and output. -Daily weights. -Cardiac telemetry. (2) Chronic kidney disease (CKD), stage IV (severe) Is this a current diagnosis for this admission?: Yes Plan: His creatinine this morning continues to be at baseline. Recommendations: -Continue with clinical follow-up and daily BMPs. (3) Elevated troponin Is this a current diagnosis for this admission?: Yes Plan: His troponin is detectable however still below the cutoff for acute injury. This is likely secondary to his heart failure exacerbation and not from an ACS. Recommendations: -Continue with clinical follow-up. (4) Permanent atrial fibrillation Is this a current diagnosis for this admission?: Yes Plan: He has been having occasional episodes of rapid ventricular response to his atrial fibrillation given that he has not had any of his p.o. medications. His telemetry demonstrates atrial fibrillation with a controlled heart rate and now sustained dysrhythmias. Recommendations: -Continue with current medical management for now. -Primary team to discuss with pharmacy what medications can be given through Dobbhoff tube so that his outpatient regimen may be resumed. (5) Change in mental status Qualifiers: Altered mental status type: unspecified Qualified Code(s): R41.82 - Altered mental status, unspecified Is this a current diagnosis for this admission?: Yes Plan: His mental status continues to be unchanged. Dr. Mclaughlin is in the process of working him up for this issue and I really appreciate his expertise and diligence.
[2019-11-17] MEDS: IPRATROPIUM/ALBUTEROL 0.5-2.5 MG/3 ML AMPUL NEB SCH ×4 (08:26→20:01)
[2019-11-17] MEDS: BUDESONIDE NEB 0.5 MG/2 ML AMPUL NEB SCH ×2 (08:26→20:01)
[2019-11-17] MEDS ORDERED: SODIUM BICARBONATE 8.4% INJ 50 MEQ/50 ML DISP.SYRIN ONE ×2 (09:38→15:49)
[2019-11-17] MEDS: TIMOLOL MALEATE 0.5% OPH SOLN 5 ML OU SCH (10:00)
[2019-11-17] MEDS: ALBUTEROL SULFATE HFA (90 MCG/PUFF) 200 PUFF/8.5 GM MDI IH SCH (12:01)
--- NOTE | 2019-11-17 13:04 | PDOC PROGRESS REPORT ---
Subjective Progress Note for:: 11/17/19 Subjective:: Patient is quite sedated. We did institute a trial of Zyprexa and we may need to decrease the dose. It is effective in keeping him from pulling his Dobbhoff feeding tube which is critical. Reason For Visit: CHF EXACERBATION Physical Exam Vital Signs: Temp Pulse Resp BP Pulse Ox 98.1 F 114 H 20 146/79 H 99 11/17/19 11:40 11/17/19 11:40 11/17/19 11:40 11/17/19 11:40 11/17/19 11:40 Intake & Output 11/16/19 11/17/19 11/18/19 06:59 06:59 06:59 Intake Total 0 Output Total 1065 890 Balance -2475 -890 Weight 94.1 kg 92.5 kg 92.5 kg General appearance: PRESENT: no acute distress, well-developed, other - Lethargic Head exam: PRESENT: atraumatic, normocephalic Respiratory exam: PRESENT: rhonchi, symmetrical, unlabored, other - Unable to take a deep breath on command. ABSENT: rales, stridor, tachypnea Cardiovascular exam: PRESENT: irregular rhythm, +S1, +S2 GI/Abdominal exam: PRESENT: hypoactive bowel sounds, soft. ABSENT: distended, guarding, tenderness Rectal exam: PRESENT: deferred Extremities exam: PRESENT: pedal edema Neurological exam: PRESENT: altered - Lethargic. Likely medication induced. Unable to further assess., awake Psychiatric exam: ABSENT: agitated, anxious Results Laboratory Results: 11/17/19 05:58 11/17/19 05:38 11/17/19 11/17/19 05:38 05:58 WBC 7.2 RBC 4.28 L Hgb 13.6 Hct 40.6 MCV 95 MCH 31.8 MCHC 33.6 RDW 15.8 H Plt Count 118 L Seg Neutrophils % 80.3 H Sodium 145.9 H Potassium 3.3 L Chloride 108 H Carbon Dioxide 27 Anion Gap 11 BUN 29 H Creatinine 1.35 H Est GFR ( Amer) > 60 Glucose 103 Calcium 9.3 Phosphorus 3.0 Magnesium 2.3 Albumin 3.6 11/13/19 11/13/19 11/13/19 10:11 13:21 19:42 Troponin I 0.032 0.027 0.031 NT-Pro-B Natriuret Pep 8320 H 11/14/19 11/14/19 11/16/19 01:48 16:44 05:48 Troponin I 0.043 NT-Pro-B Natriuret Pep 36303 H 25748 H Impressions: Chest X-Ray 11/14/19 06:00 IMPRESSION: Unchanged radiographic appearance of the chest. Gastrostomy Tube Placement 11/16/19 00:00 IMPRESSION: Successful fluoroscopic guided placement of a Dobhoff tube into the lumen of the stomach. Guidance Fluoroscopy 11/16/19 00:00 IMPRESSION: Successful fluoroscopic guided placement of a Dobhoff tube into the lumen of the stomach. Modified Barium Swallow 11/16/19 00:00 IMPRESSION: LARYNGEAL PENETRATION AND ASPIRATION ABOVE. PLEASE SEE SPEECH PATHOLOGIST REPORT FOR OTHER FINDINGS AND RECOMMENDATIONS. Assessment and Plan - Diagnosis (1) Heart failure with preserved ejection fraction, borderline, class III Is this a current diagnosis for this admission?: Yes Plan: Acute on chronic diastolic CHF Normal EF on echocardiogram September 2019 Continue to monitor on telemetry. Continue IV Lasix Daily weight Strict I&O 11/16/2019 The patient has had a net negative fluid balance of over [address] Ortiz has stopped his furosemide. Will monitor his intake and output. He is also not been able to take in fluids by mouth to any significant degree. We will be starting tube feeds and he will receive some free water flushes. We will continue to monitor his intake and output as well as monitor extremities for any edema. 11/17/2019 Still with ongoing net negative fluid balance. Tube feeding has been initiated. We will need to consider this volume with regard to intake and output. Continue current regimen and resume diuretics if needed. (2) Chronic kidney disease (CKD), stage IV (severe) Is this a current diagnosis for this admission?: Yes Plan: Continue to monitor renal function 11/16/2019 It appears that the patient's renal function is at baseline. This is based on outside laboratory studies obtained by Dr. Ortiz. We will continue to monitor intake and output. He has had extremely limited oral intake of fluids. He is not exhibiting low blood pressure. We will continue to monitor his renal function as we start tube feeds and free water flushes. 11/17/2019 Unfortunately we do not have extensive previous laboratory studies. Currently he is at stage III kidney failure. Will adjust medications accordingly. (3) Longstanding persistent atrial fibrillation Is this a current diagnosis for this admission?: Yes Plan: 11/16/2019 I have initiated therapeutic Lovenox since he is not able to take his oral anticoagulant. In addition he has not been able to take his oral metoprolol. I will initiate as needed IV dosing and if it is consistent then utilize scheduled IV doses of metoprolol to control his heart rate. 11/17/2019 He does have a Dobbhoff feeding tube. This is a very narrow lumen. Crushed medications typically do not pass through the tube very well. We will continue to utilize IV medications. (4) Elevated troponin Is this a current diagnosis for this admission?: Yes Plan: Flat. No chest pain. Cardiology involved. 11/16/2019 Despite the patient's history of coronary disease his troponins are more likely elevated certainly a combination of renal function strain. No additional troponins at this time. Can reorder if there are any concerns about acute coronary syndrome. 11/17/2019 No longer trending troponins (5) Acute delirium Is this a current diagnosis for this admission?: Yes Plan: 11/16/2019 Multifactorial. The patient has not eaten in 45 days. There is no obvious evidence of infection. He does have decompensated heart failure and chronic kidney disease. This may also be due to medication. I did have a long discussion with patient's . He does have a history of mental illness. She was unclear but it sounds like a possible posttraumatic stress disorder with a history of agitation. Since he is not able to take oral medications and has a dobhoff feeding tube I have ordered Zyprexa Zydis 5 mg at bedtime. 11/17/2019 In the Zyprexa 5 mg dosing at bedtime may be too much. I am going to discuss with pharmacy the possibility of splitting the dose and changing it to 2.5 mg t wice daily. It is an orally dissolving tablet and so we may need to dissolve it and dose based on volume of diluent. (6) Dyslipidemia Is this a current diagnosis for this admission?: Yes Plan: Continue statin treatment 11/16/2019 Hold statin due to dysphagia (7) Dysphagia Qualifiers: Dysphagia type: oropharyngeal phase Qualified Code(s): R13.12 - Dysphagia, oropharyngeal phase Is this a current diagnosis for this admission?: Yes Plan: 11/16/2019 Severe dysphagia. The patient will be n.p.o. and feeding tube will be placed. A dietitian consult has been ordered. 11/17/2019 Dobbhoff tube was placed despite the patient resisting them becoming somewhat agitated. I am going to keep him slightly sedated for the next day or 2 to allow adequate initiation of tube feeding. We will then discuss and review the case with speech therapy with regard to swallowing trials moving forward. (8) CAD (coronary artery disease) Qualifiers: Coronary Disease-Associated Artery/Lesion type: [place] artery [place] vs. transplanted heart: menominee heart Associated angina: without angina Qualified Code(s): I25.10 - Atherosclerotic heart disease of [place] coronary artery without angina pectoris Is this a current diagnosis for this admission?: Yes Plan: Continue current cardiac medications 11/16/2019 Due to dysphasia oral metoprolol is on hold. He was on aspirin therapy but this is on hold as well. He will be on Lovenox therapeutic dosing for his A. fib. 11/17/2019 No changes at this time (9) Esophageal stricture Is this a current diagnosis for this admission?: Yes Plan: 11/16/2019 Per his he has a history of requiring esophageal dilatation. She mentioned narrowing so he likely has an esophageal stricture. The etiology of this is unknown but possibly reflux. As he is n.p.o. this is a nonissue at this time. 11/17/2019 Likely not clinically significant at this time. Endoscopy can always be considered. (10) Hypertension Qualifiers: Hypertension type: essential hypertension Qualified Code(s): I10 - Essential (primary) hypertension Is this a current diagnosis for this admission?: Yes Plan: 11/16/2019 The patient's blood pressure has been elevated. It is difficult to determine if this is due to the inability to administer his metoprolol, his acute illness or periods of agitation. Intravenous metoprolol is now available on an as-needed basis. If it is a consistent need we will make it scheduled. In addition he w as on IV Lasix and this is been discontinued. He may need low-dose diuretic therapy for hypertension. 11/17/2019 Continue current regimen and adjust based on vital signs (11) Chronic obstructive pulmonary disease Qualifiers: COPD type: unspecified COPD Qualified Code(s): J44.9 - Chronic obstructive pulmonary disease, unspecified Is this a current diagnosis for this admission?: Yes Plan: 11/16/2019 Although there is no history of COPD by documentation the patient is a very poor historian and is extremely weak on admission. His home medications do include inhalers typically used for COPD. He does have increased oxygen requirements as well. Because I do not believe he is able to adequately inhale Breo Ellipta or Spiriva he will get scheduled DuoNebs and budesonide. His respiratory failure is also likely due to his heart failure. 11/17/2019 Continue nebulizer treatments (12) Acute and chronic respiratory failure with hypoxia Is this a current diagnosis for this admission?: Yes Plan: 11/16/2019 Most likely due to combination of his heart failure and COPD. See treatments for these 2 entities above. We will try and taper him to the lowest oxygen requirements. 11/17/2019 Treatment plan as above. No changes at this time. (13) Pulmonary hypertension Is this a current diagnosis for this admission?: Yes Plan: 11/16/2019 This was determined with an outpatient echocardiogram at Dr. Ortiz's office. He describes hypertension is severe. Continue current management as above. 11/17/2019 Limited intervention available with his swallowing difficulties. Conservative care at this time. - Time Time Spent with patient: 15-24 minutes Medications reviewed and adjusted accordingly: Yes Anticipated discharge: Other - Unknown Within: Other - Unknown
[2019-11-17] MEDS: ENOXAPARIN SODIUM INJ 100 MG/1 ML DISP.SYRIN SUBCUT SCH ×2 (15:12→23:03)
[2019-11-17] MEDS ORDERED: EPINEPHRINE INJ 1 MG/10 ML DISP.SYRIN ONE (15:49)
[2019-11-17 18:53] LABS: APPEARANCE,URINE SLIGHTLY-CLOUDY; BILIRUBIN,URINE NEGATIVE (NEGATIVE); COLOR,URINE AMBER; GLUCOSE, URINE NEGATIVE (NEGATIVE); KETONES,URINE 20 mg/dL (NEGATIVE); LEUKOCYTE ESTERASE,URINE LARGE (NEGATIVE); NITRITE,URINE NEGATIVE (NEGATIVE); PROTEIN,URINE 100 mg/dL (NEGATIVE); URINE SPECIFIC GRAVITY 1.019
[2019-11-17] MEDS ORDERED: OLANZAPINE 5 MG TAB.RAPDIS NG SCH (22:00)
[2019-11-17] MEDS: METOPROLOL TARTRATE PF/INJ 5 MG/5 ML SDV IV ONE (23:04)
[2019-11-17] MEDS: LATANOPROST 0.005% OPH SOLN 2.5 ML OU SCH (23:06)
[2019-11-18] MEDS ORDERED: METOPROLOL TARTRATE PF/INJ 5 MG/5 ML SDV IV ONE (00:30)
[2019-11-18] MEDS ORDERED: NOREPINEPHRINE BITARTRATE INJ/PF 4 MG/4 ML SDV IV ONE (01:07)
[2019-11-18 02:08] VITALS: BP 56/32
[2019-11-18] MEDS: IPRATROPIUM/ALBUTEROL 0.5-2.5 MG/3 ML AMPUL NEB SCH (02:08)
--- NOTE | 2019-11-18 02:48 | Operative Report ---
Bedside Procedure - History of Present Illness History of Present Illness: Indication: Respiratory Failure Procedure oil well service operator: AILYN Umanzor Attending physician: Dr. Shen Consent: The procedure was performed emergently and the permission was implied because of the emergent nature. Procedure summary: A timeout was performed. My hands were washed immediately prior to the procedure. I were surgical cap, mask with protective eyewear, gloves throughout the procedure. Using a MAC 4 laryngoscope and a size 1.5 endotracheal tube with stylette, the patient was intubated on the first attempt. The stylette was removed and the cuff balloon was inflated. Appropriate endotracheal tube position was confirmed by direct visualization of vocal cord passage, CO2 colorimetric indicator and symmetric breath sounds. The tube was secured at 24 centimeters at the lips. Indication for Procedure: Cardiac arrest, respiratory failure. Date: 11/18/19 Provider: LENY NGO
[2019-11-18] MEDS ORDERED: DEXTROSE 5%-WATER 250 ML with NOREPINEPHRINE BITARTRATE 4 MG IV PRN ×2 (03:06)
--- NOTE | 2019-11-18 03:45 | Death Summary ---
Summary Date : 11/18/19 Time of :: 01:25 Resuscitation Status: Full Code Consulting Provider: Dr. English - Final Diagnosis (1) Acute and chronic respiratory failure with hypoxia Is this a current diagnosis for this admission?: Yes (2) Chronic kidney disease (CKD), stage IV (severe) Is this a current diagnosis for this admission?: Yes (3) Congestive heart failure Is this a current diagnosis for this admission?: Yes Hospital Course:: 84-year-old male history of CAD, CHF, pulmonary hypertension, 3.9 cm aortic aneurysm, CKD, A. fib, COPD. Patient presented to the emergency room on 11/13/2019 with dyspnea on exertion and hypoxemia. Patient has had mental status changes over the past 48 hours and by report, appeared more somnolent. I was first introduced to this patient during a rapid response call. I arrived at the patient's bedside and CPR was already underway. After 1 round of epinephrine and chest compressions, he had return of spontaneous circulation. He was then intubated successfully. After several minutes, we lost a pulse and another round of CPR was initiated. Patient again had return of spontaneous circulation and patient was transferred to the intensive care unit. Upon transport, his pulse was lost again and CPR was once again initiated during transport. CPR was continued in the intensive care unit for 3 more rounds. Patient's rhythm was pulseless V. tach and he was defibrillated. CPR was continued and patient developed ventricular fibrillation. Another shock was administered with no change in rhythm. After a total of 5 rounds of CPR, including administration of sodium bicarbonate and epinephrine as well as defibrillation, the decision was made to terminate CPR. Time of was called at 1:25 AM. I personally spoke with patient's about his .
[2019-11-18] MEDS: METOPROLOL TARTRATE PF/INJ 5 MG/5 ML SDV IV ONE (04:44)
[2019-11-18] MEDS: ALBUTEROL SULFATE HFA (90 MCG/PUFF) 200 PUFF/8.5 GM MDI IH SCH (04:45)
[2019-11-18] MEDS ORDERED: METOPROLOL TARTRATE PF/INJ 5 MG/5 ML SDV IV SCH (06:00)
--- NOTE | 2019-11-18 10:56 | EKG REPORT ---
SEVERITY:- ABNORMAL ECG - ATRIAL FIBRILLATION VENTRICULAR PREMATURE COMPLEX IVCD, CONSIDER ATYPICAL RBBB BORDERLINE R WAVE PROGRESSION, ANTERIOR LEADS : Confirmed by: Mishel Fonseca 18-Nov-2019 10:56:21
== END 2019-11-18 02:30 | DRG 291 ==
LOC: ER 09:46 → EH 12:52 → 3W 15:01 → ICU 11-18 01:25
PROVIDERS: ADMIT Family Medicine; ATTEND Hospitalist
PROC: 5A1935Z Respiratory Ventilation, Less than 24 Consecutive Hours (ICD-10-PCS; principal; 2019-11-18)
PROC: 0BH17EZ Insertion of Endotracheal Airway into Trachea, Via Natural or Artificial Opening (ICD-10-PCS; 2019-11-18)
DX: I13.0 Hypertensive heart and chronic kidney disease with heart failure and stage 1 through stage 4 chronic kidney disease, or unspecified chronic kidney disease (principal); J96.21 Acute and chronic respiratory failure with hypoxia; I50.33 Acute on chronic diastolic (congestive) heart failure; N18.4 Chronic kidney disease, stage 4 (severe); I48.21 Permanent atrial fibrillation; Z78.1 Physical restraint status; I25.10 Atherosclerotic heart disease of native coronary artery without angina pectoris; J44.9 Chronic obstructive pulmonary disease, unspecified; E78.5 Hyperlipidemia, unspecified; I46.9 Cardiac arrest, cause unspecified; R41.0 Disorientation, unspecified; R13.12 Dysphagia, oropharyngeal phase; R79.89 Other specified abnormal findings of blood chemistry; Z95.1 Presence of aortocoronary bypass graft; Z95.5 Presence of coronary angioplasty implant and graft; Z87.891 Personal history of nicotine dependence; Z79.899 Other long term (current) drug therapy; Z88.2 Allergy status to sulfonamides; Z79.82 Long term (current) use of aspirin
CPT/HCPCS: 31500; 36415; 44500; 71045; 71046; 74230; 74340; 80048; 80053; 80061; 80069; 81001; 82803; 82962; 83036; 83605; 83735; 83880; 84443; 84484; 85025; 85027; 85610; 85730; 92950; 93005; 93010; 94640; 96374; 99291; C1769; J0171; J1630; J1650; J1940; J2060; J3480; J3490; J7060; J7620